=== PATIENT | male | born 1955 | race Caucasian/White ===

== ENCOUNTER 2017-09-19 22:27 | Emergency (ER) | payer OTHER ==
--- OUTSIDE RECORDS SUMMARY | 2017-09-19 22:29 | XMS REPORT | Clinical Summary ---
:1955 Author Organization [facility] Address [address] [place] [address] Care Team Providers Name Role Phone Asked, No Pcp Primary Care Provider Unavailable Allergies Active Allergy Reactions Severity Noted Date Comments Penicillin G 11/15/2016 Current Medications Prescription Sig. Disp. Refills Start Date End Date Status gabapentin TAKE ONE (1) 0 11/01/2016 Active (NEURONTIN) 300 mg CAPSULE(S) BY capsule MOUTH TWICE A DAY AND 2 CAPSULES AT BEDTIME DAILY. methadone (DOLOPHINE) TAKE ONE (1) 0 10/26/2016 Active 10 MG tablet TABLET(S) BY MOUTH FOUR TIMES A DAY FOR PAIN. methocarbamol TAKE ONE (1) 0 10/26/2016 Active (ROBAXIN) 750 MG TABLET(S) BY tablet MOUTH TWICE A DAY. docusate sodium Take 100 mg by Active (COLACE) 100 MG mouth 2 (two) capsule times a day. niacin 100 MG tablet Take 100 mg by Active mouth nightly. clomiPHENE (CLOMID) Take 0.5 tablets 45 tablet 3 06/05/2017 09/03/2017 50 mg tablet (25 mg total) by mouth daily for 90 days. ALPRAZolam (XANAX) 1 Take one dose 2 tablet 0 08/27/2017 08/31/2017 MG tablet one hour prior to MRI, second dose at time of MRI if needed. Active Problems Problem Noted Date Hypogonadism in male 06/05/2017 Osteopenia of multiple sites 05/01/2017 Low libido 05/01/2017 Cervical spondylosis without myelopathy 11/16/2016 Lumbar radiculopathy, right 11/16/2016 Postural kyphosis of thoracic region 11/16/2016 Encounters Date Type Specialty Care Team Description 09/06/2017 Office Visit Neurosurgery Cm Pollard Osteopenia of multiple sites (Primary Dx); MD Torrey Lumbar radiculopathy, right 09/06/2017 Hospital Encounter Radiology Pollard, Cm Lumbar radiculopathy MD Torrey 08/27/2017 Orders Only Neurosurgery Kelley Harris, [employer] 08/23/2017 Hospital Encounter Radiology Pollard, Cm Hip pain, acute, right MD Torrey 08/23/2017 Hospital Encounter Radiology Pollard, Cm Lumbar radiculopathy MD Torrey 08/23/2017 Hospital Encounter Radiology Cm Pollard Lumbar radiculopathy MD Torrey 08/23/2017 Office Visit Neurosurgery Pollard, Cm Osteopenia of multiple sites (Primary Dx); MD Torrey Lumbar radiculopathy, right 08/23/2017 Procedure Pass Radiology 08/23/2017 Telephone Neurosurgery Ann Harrisan, [employer] 08/23/2017 Orders Only Neurosurgery Ann Harrisan, [employer] Lumbar radiculopathy (Primary Dx) 08/23/2017 Orders Only Neurosurgery Ann Harrisan, [employer] Hip pain, acute, right (Primary Dx); Lumbar radiculopathy 08/22/2017 Telephone Endocrinology Ekta Burroughs [place] 08/21/2017 Telephone Endocrinology Ekta Burroughs [place] 06/05/2017 Office Visit Endocrinology Darrell Luis Osteopenia of multiple sites (Primary Dx); MD Derrick Hypogonadism in male 05/14/2017 Orders Only Endocrinology Manjeet Low testosterone in [place], [place] male (Primary Dx) 05/01/2017 Office Visit Endocrinology Darrell Luis Osteopenia of multiple sites (Primary Dx); MD Derrick Low libido 04/17/[address] Burger [place] 12/28/2016 Office Visit Neurosurgery Pollard, Cm Cervical spondylosis without myelopathy (Primary Dx); MD Torrey Lumbar radiculopathy, right 11/29/2016 Hospital Encounter General Surgery Cm Pollard Lumbar radiculopathy MD Torrey 11/29/2016 Anesthesia Event General Surgery Rosendo Sandy MD 11/29/2016 Procedure Pass General Surgery 11/29/2016 Surgery General Surgery Cm Pollard LUMBAR LAMINECTOMY MD Torrey DISECTOMY RIGHT SIDE L4-L5 11/16/2016 Hospital Encounter Radiology Atul, Cm Lumbar radiculopathy, right; MD Torrey Cervical spondylosis without myelopathy; Postural kyphosis of thoracic region; Preoperative testing; Pain; Cough 11/16/2016 Hospital Encounter Radiology Cm Pollard Postural kyphosis of MD Torrey thoracic region 11/16/2016 Hospital Encounter Radiology Cm Pollard Lumbar radiculopathy, right; MD Torrey Cervical spondylosis without myelopathy; Postural kyphosis of thoracic region; Preoperative testing; Pain; Cough 11/16/2016 Hospital Encounter Radiology Cm Pollard Lumbar radiculopathy, right; MD Torrey Cervical spondylosis without myelopathy; Postural kyphosis of thoracic region; Preoperative testing; Pain; Cough 11/16/2016 Hospital Encounter Radiology Cm Pollard Lumbar radiculopathy, right; MD Torrey Cervical spondylosis without myelopathy; Postural kyphosis of thoracic region; Preoperative testing; Pain; Cough 11/16/2016 Hospital Encounter Cm Olvera Lumbar radiculopathy, right; MD Torrey Cervical spondylosis without myelopathy; Postural kyphosis of thoracic region; Preoperative testing; Pain; Cough 11/16/2016 Hospital Encounter Cm Olvera MD 11/16/2016 Hospital Encounter Cm Olvera MD 11/16/2016 Hospital Encounter Cm Olvera MD 11/16/2016 Office Visit Cm Quinonez Cervical spondylosis without myelopathy (Primary Dx); MD Torrey Lumbar radiculopathy, right; Postural kyphosis of thoracic region 11/16/2016 Ancillary Orders Cm Olvera Postural kyphDrake MD thoracic region 11/16/2016 Procedure Pass Radiology 11/16/2016 Procedure Pass Radiology 11/16/2016 Procedure Pass Radiology 11/16/2016 Ancillary Orders Cm Olvera MD 11/16/2016 Orders Only Neurosurgery Kelly Mondragon Lumbar radiculopathy, right (Primary Dx); Cervical spondylosis without myelopathy; Postural kyphosis of thoracic region; Preoperative testing; Pain; Cough 11/15/2016 Abstract Neurosurgery Kelley Harris LVN after 09/18/2016 Family History Medical History Relation Name Comments Arthritis Father Heart disease Father Hypertension Mother Relation Name Status Comments Father Mother Social History Tobacco Use Types Packs/Day Years Used Date Former Smoker Cigarettes 2 Quit: 2009 Smokeless Tobacco: Never Used Comments: quit "many years ago" Alcohol Use Drinks/Week oz/Week Comments Yes 3-4 cans of beer a day, "just depends" Sex Assigned at Date Recorded Not on file Last Filed Vital Signs Vital Sign Reading Time Taken Blood Pressure 159/67 06/05/2017 10:38 AM CDT Pulse 67 06/05/2017 10:38 AM CDT Temperature 36.6 C (97.8 F) 11/29/2016 12:08 PM CDT Respiratory Rate 15 11/29/2016 12:08 PM CDT Oxygen Saturation 94% 11/29/2016 12:08 PM CDT Inhaled Oxygen Concentration - - Weight 88.5 kg (195 lb) 09/06/2017 10:18 AM CDT Height 190.5 cm (6' 3") 06/05/2017 10:38 AM CDT Body Mass Index 24.37 09/06/2017 10:18 AM CDT Plan of Treatment Date Type Specialty Care Team Description 10/09/2017 Office Visit Endocrinology Darrell Luis MD [address] [place] [address] [phone] Health Maintenance Due Date Last Done Comments COLON CANCER SCREENING 01/10/2004 SHINGRIX VACCINE (#1) 01/10/2004 ZOSTER VACCINE 2014 INFLUENZA VACCINE 09/26/2017 Implants Implanted Type Area Piecer Up Device Expiration Model / Identifier Date Serial / Lot System Spine Selnt For Dural Selng Exact 5ml Duraseal - [id number] Cardiovascular N/A: INTEGRA 01/25/2018 [id number] / Implanted: Qty: 1 on 11/29/2016 by Cm Pollard MD Implants N/A LIFESCIENCE / NEURO [id number] Matrix Hm[employer] Floseal 10ml W/ Humn F2 - [id number] Surgical N/A: ESTES [id number] / Implanted: Qty: 1 on 11/29/2016 by Cm Pollard MD Implants; N/A BIOSCIENCE / Expanders; [id number] Extenders; Surgical Wires Procedures Procedure Name Priority Date/Time Associated Diagnosis Comments MRI LUMBAR SPINE W WO Routine 09/06/2017 11:18 Lumbar radiculopathy Results for this CONTRAST AM CDT procedure are in the results section. ESTIMATED GFR Routine 09/06/2017 10:32 Results for this AM CDT procedure are in the results section. POC CREATININE Routine 09/06/2017 10:32 Results for this AM CDT procedure are in the results section. XR LUMBAR SPINE Routine 08/23/2017 1:34 Lumbar radiculopathy Results for this COMPLETE W BENDING PM CDT procedure are in the results section. XR HIP 2-3 VIEWS Routine 08/23/2017 1:33 Hip pain, acute, Results for this RIGHT PM CDT right procedure are in the results section. XR SPINE SCOLIOSIS Routine 08/23/2017 1:32 Lumbar radiculopathy Results for this 2-3 VIEWS PM CDT procedure are in the results section. TESTOSTERONE LEVEL, Routine 08/04/2017 11:58 Osteopenia of Results for this FREE AND TOTAL, MALE AM CDT multiple sites procedure are in Hypogonadism in male the results section. PROLACTIN LEVEL Routine 05/21/2017 10:07 Low testosterone in Results for this AM CDT male procedure are in the results section. TESTOSTERONE LEVEL, Routine 05/21/2017 10:07 Low testosterone in Results for this FREE AND TOTAL, MALE AM CDT male procedure are in the results section. LUTEINIZING HORMONE Routine 05/21/2017 10:07 Low testosterone in Results for this AM CDT male procedure are in the results section. FOLLICLE STIMULATING Routine 05/21/2017 10:07 Low testosterone in Results for this HORMONE AM CDT male procedure are in the results section. TESTOSTERONE LEVEL, Routine 05/01/2017 11:15 Osteopenia of Results for this FREE AND TOTAL, MALE AM LADIES ATTENDANT multiple sites procedure are in Low libido the results section. SURGICAL PATHOLOGY Routine 11/29/2016 11:03 Results for this REQUEST AM CDT procedure are in the results section. XR LUMBAR SPINE 1 VW Routine 11/29/2016 8:53 Results for this AM CDT procedure are in the results section. XR LUMBAR SPINE 1 VW Routine 11/29/2016 8:52 Results for this AM CDT procedure are in the results section. MS AN ELECTIVE Routine 11/29/2016 8:33 ENDOTRACHEAL AIRWAY AM CDT Procedure Note - Rosendo Sandy MD - 11/29/2016 8:32 AM CDT Airway Date/Time: 11/29/2016 8:33 AM Performed by: ROSENDO SANDY Authorized by: ROSENDO SANDY Location: OR Urgency: Elective Difficult Airway: No Preoxygenated with 100% O2: Yes C-spine Precautions Maintained Throughout: Yes Mask Ventilation: Assisted mask Final Airway Type: Endotracheal airway Final Endotracheal Airway: ETT Cuffed: Yes Technique Used: Direct laryngoscopy Devices/Methods Used in Placement: Intubating stylet Insertion Site: Oral Blade Type: Seay Laryngoscope Blade/Videolaryngoscope Blade Size: 2 ETT Size (mm): 8.0 Cuff at minimum occlusion pressure: Yes Measured from: Gums ETT to Gums (cm): 23 Placement Verified by: CO2 detection, direct visualization and equal breath sounds Laryngoscopic view: Grade IIa - partial view of glottis Rapid Sequence Induction (RSI): No Modified RSI: No Number of Attempts at Approach: 1 LAMINECTOMY, LUMBAR 11/29/2016 8:00 AM CDT Lumbar radiculopathy Case Notes PRONE POSITION, MICROSCOPE , FAIZAN FRAME Special Needs PRONE POSITION, MICROSCOPE , FAIZAN FRAME ESTIMATED GFR STAT 11/29/2016 6:00 AM Results for this CDT procedure are in the results section. COMPREHENSIVE STAT 11/29/2016 6:00 AM Results for this METABOLIC PANEL CDT procedure are in the results section. HC COMPLETE BLD COUNT STAT 11/29/2016 6:00 AM Results for this W/AUTO DIFF CDT procedure are in the results section. BONE DENSITY Routine 11/16/2016 11:38 AM Lumbar Results for this CDT radiculopathy, procedure are in right the results Cervical section. spondylosis without myelopathy Postural kyphosis of thoracic region Preoperative testing Pain Cough BONE DENSITY Routine 11/16/2016 11:38 AM Postural kyphosis Results for this PERIPHERAL CDT of thoracic region procedure are in the results section. XR LUMBAR SPINE Routine 11/16/2016 11:21 AM Lumbar Results for this COMPLETE W BENDING CDT radiculopathy, procedure are in right the results Cervical section. spondylosis without myelopathy Postural kyphosis of thoracic region Preoperative testing Pain Cough XR CERVICAL SPINE Routine 11/16/2016 11:20 AM Lumbar Results for this COMPLETE W FLEX EXT CDT radiculopathy, procedure are in right the results Cervical section. spondylosis without myelopathy Postural kyphosis of thoracic region Preoperative testing Pain Cough XR SPINE SCOLIOSIS 2-3 Routine 11/16/2016 11:20 AM Lumbar Results for this VIEWS CDT radiculopathy, procedure are in right the results Cervical section. spondylosis without myelopathy Postural kyphosis of thoracic region Preoperative testing Pain Cough XR CHEST 2 VW Routine 11/16/2016 11:19 AM Lumbar Results for this CDT radiculopathy, procedure are in right the results Cervical section. spondylosis without myelopathy Postural kyphosis of thoracic region Preoperative testing Pain Cough MRI SPINE EXTERNAL Routine 11/09/2016 4:28 PM Results for this STUDY CDT procedure are in the results section. MRI SPINE EXTERNAL Routine 11/09/2016 4:11 PM Results for this STUDY CDT procedure are in the results section. MRI SPINE EXTERNAL Routine 11/09/2016 3:54 PM Results for this STUDY CDT procedure are in the results section. after 09/18/2016 Results MRI Lumbar Spine W Wo Contrast (09/06/2017 11:18 AM) Narrative Performed At EXAMINATION:MRI LUMBAR SPINE W WO CONTRAST [facility] CLINICAL HISTORY:M54.16 Radiculopathylumbar region, Radiculopathy prior surgerynew or progressive sx, lumbar radiculopathy COMPARISON:None. TECHNIQUE: Multiplanar MRI imaging with and withoutIV Gadolinium was performed. FINDINGS: There is normal lumbar lordosis and alignment. Vertebral bodies are preserved. Intervertebral disc spaces are relatively preserved. The distal spinal cord appears unremarkable. The conus medullaris t erminates at the L1-L2 level and appears unremarkable. The cauda equina is unremarkable. L1-2: Unremarkable L2-3: Unremarkable L3-4: Unremarkable L4-5: There is a right-sided laminotomy with expected right epidural enhancing granulation tissue surrounding the traversing right L5 nerve root. There is no canal stenosis or foramina narrowing. There is a no residual or recurrent disc herniation. There is intense bone son edema involving the right pedicle of L5 with suspected the coronal right pedicular fracture and the right L5 pars interarticularis defect. L5-S1: Right L5 pedicular and pars interarticularis intense bone son edema. There is a no canal stenosis and no foraminal narrowing. Visualized paraspinal soft tissues are unremarkable. IMPRESSION: Right laminotomy changes at L4-L5 level with expected mild enhancing right lateral epidural granulation tissue with no residual or current disc herniation. Suspected right pedicle acute coronal fracture of L5 with associated right pars interarticularis defect. There is no spondylolisthesis. There is no canal stenosis or foramina narrowing. If clinically wa rranted evaluation with CT of the lumbar spine is recommended. [id number] Procedure Note Hm Interface, Radiology Results - 09/06/2017 12:00 PM CDT EXAMINATION: MRI LUMBAR SPINE W WO CONTRAST CLINICAL HISTORY: M54.16 Radiculopathy lumbar region, Radiculopathy prior surgery new or progressive sx, lumbar radiculopathy COMPARISON: None. TECHNIQUE: Multiplanar MRI imaging with and without IV Gadolinium was performed. FINDINGS: There is normal lumbar lordosis and alignment. Vertebral bodies are preserved. Intervertebral disc spaces are relatively preserved. The distal spinal cord appears unremarkable. The conus medullaris terminates at the L1-L2 level and appears unremarkable. The cauda equina is unremarkable. L1-2: Unremarkable L2-3: Unremarkable L3-4: Unremarkable L4-5: There is a right-sided laminotomy with expected right epidural enhancing granulation tissue surrounding the traversing right L5 nerve root. There is no canal stenosis or foramina narrowing. There is a no residual or recurrent disc herniation. There is intense bone son edema involving the right pedicle of L5 with suspected the coronal right pedicular fracture and the right L5 pars interarticularis defect. L5-S1: Right L5 pedicular and pars interarticularis intense bone son edema. There is a no canal stenosis and no foraminal narrowing. Visualized paraspinal soft tissues are unremarkable. IMPRESSION: Right laminotomy changes at L4-L5 level with expected mild enhancing right lateral epidural granulation tissue with no residual or current disc herniation. Suspected right pedicle acute coronal fracture of L5 with associated right pars interarticularis defect. There is no spondylolisthesis. There is no canal stenosis or foramina narrowing. If clinically warranted evaluation with CT of the lumbar spine is recommended. [id number] Performing Organization Address City/State/Zipcode Phone Number [facility] [address] [place] [address] Estimated GFR (09/06/2017 10:32 AM) GFR Non Af Amer 67 mL/min/1.73 m2 [facility] DEPARTMENT OF PATHOLOGY AND GENOMIC MEDICINE GFR Af Amer 82 mL/min/1.73 m2 [facility] DEPARTMENT OF Comment: PATHOLOGY AND GENOMIC Chronic kidney disease: <60 mL/min/1.73m2 MEDICINE Kidney failure: <15 mL/min/1.73m2 The estimated GFR is calculated from the IDMS-traceable Modification of Diet in Renal Disease Equation. The accuracy of the calculation is poor when the creatinine is normal. Calculated values >90 mL/min/1.73m2 are not reported. This equation has not been validated in children (<18 years), women, the elderly (>70 years), or ethnic groups other than Caucasians and Americans. Specimen Blood Performing Organization Address City/[facility] Phone Number [facility] DEPARTMENT OF PATHOLOGY AND [address] [phone] [employer] [facility]IC[facility] POC creatinine (09/06/2017 10:32 AM) POC creatinine 1.1 0.7 - 1.2 mg/dl [facility] DEPARTMENT OF PATHOLOGY Comment: AND [employer]ICINE Meter ID: [id number] Electroless Plater: Angel Luis Olivo Specimen Blood Performing Organization Address [facility] Phone Number [facility] DEPARTMENT OF PATHOLOGY AND [address] [place], [place] [phone] GENOMIC MEDICINE XR Lumbar Spine Complete W Flex and Ext (08/23/2017 1:34 PM)Only the most recent of2 resultswithin the time period is included. Narrative Performed At EXAMINATION: XR LUMBAR SPINE COMPLETE W FLEX & EXTEND [facility] CLINICAL HISTORY: M54.16 Radiculopathylumbar region, RADICULOPATHY COMPARISON:Lumbar x-ray dated November 29, 2016 IMPRESSION: 7 views of the lumbar spine were obtained. Flexion-extension imaging was performed with no translational interbody movement identified. There is decreased range of motion. There is facet disease most prominent from L3 to S1. There is loss of disc height with vacuum disc phenomenon L5-S1. No acute osseous abnormality identified. [id number] Procedure Note Hm Interface, Radiology Results Incoming - 08/23/2017 1:41 PM CDT EXAMINATION: XR LUMBAR SPINE COMPLETE W FLEX & EXTEND CLINICAL HISTORY: M54.16 Radiculopathy lumbar region, RADICULOPATHY COMPARISON: Lumbar x-ray dated November 29, 2016 IMPRESSION: 7 views of the lumbar spine were obtained. Flexion-extension imaging was performed with no translational interbody movement identified. There is decreased range of motion. There is facet disease most prominent from L3 to S1. There is loss of disc height with vacuum disc phenomenon L5-S1. No acute osseous abnormality identified. [id number] Performing Organization Address [facility] Phone Number [facility] [address] [place] [address] XR Hip 2-3 View Right (08/23/2017 1:33 PM) Narrative Performed At EXAMINATION:XR HIP 2-3 VIEWS RIGHT [facility] CLINICAL HISTORY:M25.551 Pain in right hip, hip pain COMPARISON:None. IMPRESSION: Bones are well-mineralized. No fracture or dislocation. Minimal degenerative change of the right hip. There are some prostatic calcifications. [facility]-[id number] Procedure Note Interface, Radiology Results Incoming - 08/23/2017 2:17 PM CDT EXAMINATION: XR HIP 2-3 VIEWS RIGHT CLINICAL HISTORY: M25.551 Pain in right hip, hip pain COMPARISON: None. IMPRESSION: Bones are well-mineralized. No fracture or dislocation. Minimal degenerative change of the right hip. There are some prostatic calcifications. [facility]-[id number] Performing Organization Address [facility] Phone Number [facility] [address] [place] [address] XR Spine Scoliosos 2-3 Views (08/23/2017 1:32 PM)Only the most recent of2 resultswithin the time period is included. Narrative Performed At EXAMINATION:XR SPINE SCOLIOSIS 2-3 VIEWS [facility] CLINICAL HISTORY:M54.16 Radiculopathylumbar region, radiculopathy COMPARISON:November 16, 2016 IMPRESSION: 8 views of the spine were obtained. Stable convexity of the upper thoracic spine to the left and mid lumbar spine to the right. Stable exaggerated kyphosis of the thoracic spine. No compression fractures or aggressive bony lesions. Multilevel disc space narrowing and endplate degenerative changes worst in the T9-10. [facility]-[id number] Procedure Note Interface, Radiology Results Incoming - 08/23/2017 3:33 PM CDT EXAMINATION: XR SPINE SCOLIOSIS 2-3 VIEWS CLINICAL HISTORY: M54.16 Radiculopathy lumbar region, radiculopathy COMPARISON: November 16, 2016 IMPRESSION: 8 views of the spine were obtained. Stable convexity of the upper thoracic spine to the left and mid lumbar spine to the right. Stable exaggerated kyphosis of the thoracic spine. No compression fractures or aggressive bony lesions. Multilevel disc space narrowing and endplate degenerative changes worst in the T9-10. [facility]-[id number] Performing Organization Address City/[facility]/Zipcode Phone Number [facility] [address] [place] [address] Testosterone level, free and total, male (08/04/2017 11:58 AM)Only the most recent of3 resultswithin the time period is included. Testosterone, total, 803 250 - 1,100 [facility] lc/ms/ms Comment: ng/dL NINFA CORNELIUS Males: Men with clinically significant hypogonadal symptoms and testosterone values repeatedly in the range of the 200-300 ng/dL or less, may benefit from testosterone treatment after adequate risk and benefits counseling. Testosterone, free 77.0 35.0 - 155.0 [facility] Comment: pg/mL OCASIO ASHLI This test was developed and its analytical performance characteristics have been determined by [facility]. It has not been cleared or approved by the US Food and Drug Administration. This assay has been validated pursuant to the CLIA regulations and is used for clinical purposes. Specimen Blood Narrative Performed At FASTING:NO QUEST FASTING: NO Resulting Agency Comment Performing Organization Information: Site ID: [id number] Name: [facility] Address: [address] [place] [phone] Director: Anival Christie M.D., Ph.D Performing Organization Address [facility] Phone Number [facility] [address] [address] [phone] Prolactin level (05/21/2017 10:07 AM) Prolactin 7.3 2.0 - 18.0 ng/mL [facility] [place] Specimen Blood Narrative Performed At FASTING:YES QUEST FASTING: YES Resulting Agency Comment Performing Organization Information: Site ID: [id number] Name: [facility] Address: [address] [place] [phone] Director: Kristie Floyd MD Performing Organization Address [facility] Phone Number [phone] [facility] [id number] [place] [address] Luteinizing hormone (05/21/2017 10:07 AM) Luteinizing hormone 1.7 1.6 - 15.2 mIU/mL [facility] [place] Specimen Blood Narrative Performed At FASTING:YES [facility]ST FASTING: YES Resulting Agency Comment Performing Organization Information: Site ID: [id number] Name: [facility] Address: [address] [place] [phone] Director: Kristie Floyd MD Performing Organization Address City/[facility] Phone Number [phone] [place] [phone] Follicle stimulating hormone (05/21/2017 10:07 AM) Follicle stimulating hormone 1.0 (L) 1.6 - 8.0 mIU/mL [facility] [place] Specimen Blood Narrative Performed At FASTING:YES [facility]ST FASTING: YES Resulting Agency Comment Performing Organization Information: Site ID: [id number] Name: [facility] Address: [address] [place] [phone] Director: Kristie Floyd MD Performing Organization Address [facility] Phone Number [phone] [facility] [place] [phone] Surgical pathology request (11/29/2016 11:03 AM) [facility] DEPARTMENT OF PATHOLOGY AND GENOMIC MEDICINE Surgical pathology report See link below for PDF [facility] DEPARTMENT OF Lab Report PATHOLOGY AND GENOMIC MEDICINE Performing Organization Address [facility] Phone Number [facility] DEPARTMENT OF PATHOLOGY AND [address] [place] [address] GENOMIC MEDICINE XR Lumbar Spine 1 Vw (11/29/2016 8:53 AM)Only the most recent of2 resultswithin the time period is included. Narrative Performed At EXAMINATION:XR LUMBAR SPINE 1 VW [facility] CLINICAL HISTORY: COMPARISON:None. IMPRESSION: Single intraoperative lateral localization film of the lumbar spine demonstrates a radiopaque instrument projecting overlying the inferior articular facet of L4. [id number] Procedure Note Interface, Radiology Results Incoming - 11/29/2016 9:04 AM CDT EXAMINATION: XR LUMBAR SPINE 1 VW CLINICAL HISTORY: COMPARISON: None. IMPRESSION: Single intraoperative lateral localization film of the lumbar spine demonstrates a radiopaque instrument projecting overlying the inferior articular facet of L4. [id number] Performing Organization Address City/[facility]/Zipcode Phone Number [facility] [address] [place] [address] Estimated GFR (11/29/2016 6:00 AM) GFR Non Af Amer 85 mL/min/1.73 m2 [facility] DEPARTMENT OF PATHOLOGY AND GENOMIC MEDICINE GFR Af Amer >90 mL/min/1.73 m2 [facility] DEPARTMENT OF Comment: PATHOLOGY AND GENOMIC Chronic kidney disease: <60 mL/min/1.73m2 MEDICINE Kidney failure: <15 mL/min/1.73m2 The estimated GFR is calculated from the IDMS-traceable Modification of Diet in Renal Disease Equation. The accuracy of the calculation is poor when the creatinine is normal. Calculated values >90 mL/min/1.73m2 are not reported. This equation has not been validated in children (<18 years), women, the elderly (>70 years), or ethnic groups other than Caucasians and Americans. Specimen Plasma specimen Performing Organization Address City/State/Zipcode Phone Number [facility] DEPARTMENT OF PATHOLOGY AND [address] [place] [address] [employer] [facility] CBC with platelet and differential (11/29/2016 6:00 AM) WBC 6.90 4.50 - 11.00 k/uL [facility] DEPARTMENT OF PATHOLOGY AND GENOMIC MEDICINE RBC 4.19 (L) 4.40 - 6.00 m/uL [facility] DEPARTMENT OF PATHOLOGY AND GENOMIC MEDICINE HGB 13.3 (L) 14.0 - 18.0 g/dL [facility] DEPARTMENT OF PATHOLOGY AND GENOMIC MEDICINE HCT 40.4 (L) 41.0 - 51.0 % [facility] DEPARTMENT OF PATHOLOGY AND GENOMIC MEDICINE MCV 96.4 82.0 - 100.0 fL [facility] DEPARTMENT OF PATHOLOGY AND GENOMIC MEDICINE MCH 31.7 27.0 - 34.0 pg [facility] DEPARTMENT OF PATHOLOGY AND GENOMIC MEDICINE MCHC 32.9 31.0 - 37.0 g/dL [facility] DEPARTMENT OF PATHOLOGY AND GENOMIC MEDICINE RDW - SD 43.6 37.0 - 55.0 fL [facility] DEPARTMENT OF PATHOLOGY AND GENOMIC MEDICINE MPV 11.0 8.8 - 13.2 fL [facility] DEPARTMENT OF PATHOLOGY AND GENOMIC MEDICINE Platelet count 200 150 - 400 k/uL [facility] DEPARTMENT OF PATHOLOGY AND GENOMIC MEDICINE Nucleated RBC 0.00 /100 WBC [facility] DEPARTMENT OF PATHOLOGY AND GENOMIC MEDICINE Neutrophils 49.4 39.0 - 69.0 % [facility] DEPARTMENT OF PATHOLOGY AND GENOMIC MEDICINE Lymphocytes 33.0 25.0 - 45.0 % [facility] DEPARTMENT OF PATHOLOGY AND GENOMIC MEDICINE Monocytes 8.4 0.0 - 10.0 % [facility] DEPARTMENT OF PATHOLOGY AND GENOMIC MEDICINE Eosinophils 7.2 (H) 0.0 - 5.0 % [facility] DEPARTMENT OF PATHOLOGY AND GENOMIC MEDICINE Basophils 1.3 (H) 0.0 - 1.0 % [facility] DEPARTMENT OF PATHOLOGY AND GENOMIC MEDICINE Immature granulocytes 0.7Comment: 0.0 - 1.0 % [facility] DEPARTMENT OF "Immature PATHOLOGY AND GENOMIC granulocytes" MEDICINE (promyelocytes, myelocytes, metamyelocytes) Specimen Blood Performing Organization Address City/State/Zipcode Phone Number [facility] DEPARTMENT OF PATHOLOGY AND [address] [place] [address] [facility] Comprehensive metabolic panel (11/29/2016 6:00 AM) Sodium 140 135 - 148 mEq/L [facility] DEPARTMENT OF PATHOLOGY AND GENOMIC MEDICINE Potassium 4.4 3.5 - 5.0 mEq/L [facility] DEPARTMENT OF PATHOLOGY AND GENOMIC MEDICINE Chloride 104 98 - 112 mEq/L [facility] DEPARTMENT OF PATHOLOGY AND GENOMIC MEDICINE CO2 24 24 - 31 mEq/L [facility] DEPARTMENT OF PATHOLOGY AND GENOMIC MEDICINE Anion gap 12 7 - 15 mEq/L [facility] DEPARTMENT OF Comment: PATHOLOGY AND GENOMIC Starting from May , anion gap calculation MEDICINE no longer incorporates potassium. Please note the change. BUN 13 8 - 23 mg/dL [facility] DEPARTMENT OF PATHOLOGY AND GENOMIC MEDICINE Creatinine 0.9 0.7 - 1.2 mg/dL [facility] DEPARTMENT OF PATHOLOGY AND GENOMIC MEDICINE Glucose 97 65 - 99 mg/dL [facility] DEPARTMENT OF PATHOLOGY AND GENOMIC MEDICINE Calcium 9.1 8.8 - 10.2 mg/dL [facility] DEPARTMENT OF PATHOLOGY AND GENOMIC MEDICINE Protein 6.3 6.3 - 8.3 g/dL [facility] DEPARTMENT OF Comment: PATHOLOGY AND GENOMIC 4.6-7.0 g/dL MEDICINE 1 week 4.4-7.6 g/dL 7 months-1year5.1-7.3 g/dL 1-2 years5.6-7.5 g/dL >3 years6.0-8.0 g/dL 18-150 6.3-8.3 g/dL Albumin 3.1 (L) 3.5 - 5.0 g/dL [facility] DEPARTMENT OF PATHOLOGY AND GENOMIC MEDICINE A/G ratio 1.0 0.7 - 3.8 [facility] DEPARTMENT OF PATHOLOGY AND GENOMIC MEDICINE Alkaline phosphatase 75 40 - 129 U/L [facility] DEPARTMENT OF PATHOLOGY AND GENOMIC MEDICINE AST 18 10 - 50 U/L [facility] DEPARTMENT OF PATHOLOGY AND GENOMIC MEDICINE ALT 18 5 - 50 U/L [facility] DEPARTMENT OF PATHOLOGY AND GENOMIC MEDICINE Total bilirubin <0.2 0.0 - 1.2 mg/dL [facility] DEPARTMENT OF PATHOLOGY AND GENOMIC MEDICINE Specimen Plasma specimen Performing Organization Address City/State/Zipcode Phone Number [facility] DEPARTMENT OF PATHOLOGY AND [address] [place] [address] GENOMIC MEDICINE Bone Density Peripheral (11/16/2016 11:38 AM) Narrative Performed At EXAMINATION:BONE DENSITY WITH PERIPHERAL HM [facility] CLINICAL HISTORY:M54.16 Radiculopathylumbar region, 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 The results of this study expressed as bone mineral density (BMD) were as follows: AP spine (L1-L4) BMD: 1.100 g/cm2 T-Score: -1.0 Z-Score: -0.8 Percent change: No prior exam. % Dual Femur (Total Mean): BMD: 0.862 g/cm2 T-Score: -1.7 Z-Score:-1.3 Percent change: No prior exam. % Left Forearm (Radius 33%): BMD: 0.929 g/cm2 T-Score: -0.6 Z-Score: -0.1 Percent change: No prior exam. % Femur FRAX: Risk factors: None. 10 year probability of fracture: 1.Major osteoporotic: 7.9% 2.Hip: 1.7% 3.Based on femur right neck BMD Trabecular Bone Score (TBS): TBS L1-L4: 1.310,partially degraded microarchitecture The 10 year probability of fracture, adjusted for FRAX: Major Osteoporotic Fracture: 8.1% Hip Fracture:1.6% Impression: 1.Osteopenia based on a T score value of -1.7 for the dual femur total mean. Notes: *The world health organization (WHO) has classified the patient's T-score as follows: At or above (-1) as normal (-1) to (-2.5) as low (osteopenia) At or below (-2.5) as abnormally low (osteoporosis, increased fracture risk) For premenopausal women, men under the age 50 years, and children the WHO classification does not apply. In these individuals please assess bone mineral density with Z scores for each skeletal site examined. Z scores above -2.0: Within expected range for age. Z scores lower than -2.0:Low bone density for age. The TBS is derived from the texture of the DEXA image and has been shown to be related to bone microarchitecture and fracture risk. This data provides information independent of BMD value; is used as a complement to the data obtained from the DEXA analysis and the clinical examination. The TBS can assist the healthcare professional in assessment of fracture risk and in monitoring the effect of treatments on patient over time. [facility]-[id number] Procedure Note [facility], Radiology Results Incoming - 11/16/2016 12:16 PM CDT EXAMINATION: BONE DENSITY WITH PERIPHERAL CLINICAL HISTORY: M54.16 Radiculopathy lumbar region, M47.812 Spondylosis without myelopathy or radiculopathy cervical region, Osteoarthritis, pre-op COMPARISON: None. The results of this study expressed as bone mineral density (BMD) were as follows: AP spine (L1-L4) BMD: 1.100 g/cm2 T-Score: -1.0 Z-Score: -0.8 Percent change: No prior exam. % Dual Femur (Total Mean): BMD: 0.862 g/cm2 T-Score: -1.7 Z-Score: -1.3 Percent change: No prior exam. % Left Forearm (Radius 33%): BMD: 0.929 g/cm2 T-Score: -0.6 Z-Score: -0.1 Percent change: No prior exam. % Femur FRAX: Risk factors: None. 10 year probability of fracture: 1. Major osteoporotic: 7.9% 2. Hip: 1.7% 3. Based on femur right neck BMD Trabecular Bone Score (TBS): TBS L1-L4: 1.310, partially degraded microarchitecture The 10 year probability of fracture, adjusted for FRAX: Major Osteoporotic Fracture: 8.1% Hip Fracture: 1.6% Impression: 1. Osteopenia based on a T score value of -1.7 for the dual femur total mean. Notes: *The world health organization (WHO) has classified the patient's T-score as follows: At or above (-1) as normal (-1) to (-2.5) as low (osteopenia) At or below (-2.5) as abnormally low (osteoporosis, increased fracture risk) For premenopausal women, men under the age 50 years, and children the WHO classification does not apply. In these individuals please assess bone mineral density with Z scores for each skeletal site examined. Z scores above -2.0: Within expected range for age. Z scores lower than -2.0: Low bone density for age. The TBS is derived from the texture of the DEXA image and has been shown to be related to bone microarchitecture and fracture risk. This data provides information independent of BMD value; is used as a complement to the data obtained from the DEXA analysis and the clinical examination. The TBS can assist the healthcare professional in assessment of fracture risk and in monitoring the effect of treatments on patient over time. 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 The results of this study expressed as bone mineral density (BMD) were as follows: AP spine (L1-L4) BMD: 1.100 g/cm2 T-Score: -1.0 Z-Score: -0.8 Percent change: No prior exam. % Dual Femur (Total Mean): BMD: 0.862 g/cm2 T-Score: -1.7 Z-Score:-1.3 Percent change: No prior exam. % Left Forearm (Radius 33%): BMD: 0.929 g/cm2 T-Score: -0.6 Z-Score: -0.1 Percent change: No prior exam. % Femur FRAX: Risk factors: None. 10 year probability of fracture: 1.Major osteoporotic: 7.9% 2.Hip: 1.7% 3.Based on femur right neck BMD Trabecular Bone Score (TBS): TBS L1-L4: 1.310,partially degraded microarchitecture The 10 year probability of fracture, adjusted for FRAX: Major Osteoporotic Fracture: 8.1% Hip Fracture:1.6% Impression: 1.Osteopenia based on a T score value of -1.7 for the dual femur total mean. Notes: *The world health organization (WHO) has classified the patient's T-score as follows: At or above (-1) as normal (-1) to (-2.5) as low (osteopenia) At or below (-2.5) as abnormally low (osteoporosis, increased fracture risk) For premenopausal women, men under the age 50 years, and children the WHO classification does not apply. In these individuals please assess bone mineral density with Z scores for each skeletal site examined. Z scores above -2.0: Within expected range for age. Z scores lower than -2.0:Low bone density for age. The TBS is derived from the texture of the DEXA image and has been shown to be related to bone microarchitecture and fracture risk. This data provides information independent of BMD value; is used as a complement to the data obtained from the DEXA analysis and the clinical examination. The TBS can assist the healthcare professional in assessment of fracture risk and in monitoring the effect of treatments on patient over time. [facility]-[id number] Procedure Note [facility], Radiology Results Incoming - 11/16/2016 12:15 PM CDT EXAMINATION: BONE DENSITY CLINICAL HISTORY: M54.16 Radiculopathy lumbar region, M47.812 Spondylosis without myelopathy or radiculopathy cervical region, Osteoarthritis, pre-op COMPARISON: None. The results of this study expressed as bone mineral density (BMD) were as follows: AP spine (L1-L4) BMD: 1.100 g/cm2 T-Score: -1.0 Z-Score: -0.8 Percent change: No prior exam. % Dual Femur (Total Mean): BMD: 0.862 g/cm2 T-Score: -1.7 Z-Score: -1.3 Percent change: No prior exam. % Left Forearm (Radius 33%): BMD: 0.929 g/cm2 T-Score: -0.6 Z-Score: -0.1 Percent change: No prior exam. % Femur FRAX: Risk factors: None. 10 year probability of fracture: 1. Major osteoporotic: 7.9% 2. Hip: 1.7% 3. Based on femur right neck BMD Trabecular Bone Score (TBS): TBS L1-L4: 1.310, partially degraded microarchitecture The 10 year probability of fracture, adjusted for FRAX: Major Osteoporotic Fracture: 8.1% Hip Fracture: 1.6% Impression: 1. Osteopenia based on a T score value of -1.7 for the dual femur total mean. Notes: *The world health organization (WHO) has classified the patient's T-score as follows: At or above (-1) as normal (-1) to (-2.5) as low (osteopenia) At or below (-2.5) as abnormally low (osteoporosis, increased fracture risk) For premenopausal women, men under the age 50 years, and children the WHO classification does not apply. In these individuals please assess bone mineral density with Z scores for each skeletal site examined. Z scores above -2.0: Within expected range for age. Z scores lower than -2.0: Low bone density for age. The TBS is derived from the texture of the DEXA image and has been shown to be related to bone microarchitecture and fracture risk. This data provides information independent of BMD value; is used as a complement to the data obtained from the DEXA analysis and the clinical examination. The TBS can assist the healthcare professional in assessment of fracture risk and in monitoring the effect of treatments on patient over time. [facility]-[id number] [facility] Organization Address City/State/Zipcode Phone Number [facility] [address] [place] [address] XR Cervical Spine Complete w flex/ext (11/16/2016 11:20 AM) Narrative Performed At EXAMINATION:XR CERVICAL SPINE COMPLETE W FLEX EXT [facility] 8 views CLINICAL HISTORY:M54.16 Radiculopathylumbar region, M47.812 Spondylosis without myelopathy or radiculopathycervical region, NECK PAINCERVICAL SPINE COMPARISON:Cervical spine June 20, 2016. FINDINGS: 1. There is no prevertebral soft tissue swelling, fracture or subluxation demonstrated 2.On the neutral lateral view there is normal alignment except for slight retrolisthesis of C5 relative to C6 which is reduced in flexion and slightly accentuated in extension.. There is otherwise no abnormal movement on the dynamic views. 3.At C3-4 there is mild to moderate ventral spondylosis. There is minimal disc space narrowing at C4-5. There is moderate disc space narrowing and very minimal spondylosis at C5-C6. There is mild ventral spondylosis and mild to moderate disc space narrowing at C6-C7. 4.There is minimal uncovertebral hypertrophic change with minimal foraminal narrowing on the right at C5-6 and C6-7 and on the left at C6-C7. There there is very minimal uncovertebral degenerative changes without significant foraminal stenosis on the left at C3-4, C4-5 and on the right at C3-4. The AP dimensions of the cervical spinal canal are within normal limits. 5.There is slight curvature of the cervical spine convex towards the right. IMPRESSION: Mild degenerative changes without evidence of an acute abnormality. The spondylosis is C3-4 has progressed slightly since the last study otherwise no definite interval change. [facility]-[id number] Procedure Note Hm Interface, Radiology Results - 11/16/2016 11:42 AM CDT EXAMINATION: XR CERVICAL SPINE COMPLETE W FLEX EXT 8 views CLINICAL HISTORY: M54.16 Radiculopathy lumbar region, M47.812 Spondylosis without myelopathy or radiculopathy cervical region, NECK PAIN CERVICAL SPINE COMPARISON: Cervical spine June 20, 2016. FINDINGS: 1. There is no prevertebral soft tissue swelling, fracture or subluxation demonstrated 2. On the neutral lateral view there is normal alignment except for slight retrolisthesis of C5 relative to C6 which is reduced in flexion and slightly accentuated in extension.. There is otherwise no abnormal movement on the dynamic views. 3. At C3-4 there is mild to moderate ventral spondylosis. There is minimal disc space narrowing at C4-5. There is moderate disc space narrowing and very minimal spondylosis at C5-C6. There is mild ventral spondylosis and mild to moderate disc space narrowing at C6-C7. 4. There is minimal uncovertebral hypertrophic change with minimal foraminal narrowing on the right at C5-6 and C6-7 and on the left at C6-C7. There there is very minimal uncovertebral degenerative changes without significant foraminal stenosis on the left at C3-4, C4-5 and on the right at C3-4. The AP dimensions of the cervical spinal canal are within normal limits. 5. There is slight curvature of the cervical spine convex towards the right. IMPRESSION: Mild degenerative changes without evidence of an acute abnormality. The spondylosis is C3-4 has progressed slightly since the last study otherwise no definite interval change. [facility]-[id number] Performing Organization Address City/State/Zipcode Phone Number [facility] [address] [place] [address] XR Chest 2 Vw (11/16/2016 11:19 AM) Narrative Performed At EXAMINATION:XR CHEST 2 VW [facility] CLINICAL HISTORY:M54.16 Radiculopathylumbar region, M47.812 Spondylosis without myelopathy or radiculopathycervical region, Cough IMPRESSION: Normal chest. Heart and mediastinum are within normal limits. Lungs are clear. Regional skeleton is intact. No change from April 16, 2006 [facility]-[id number] Procedure Note Hm Interface, Radiology Results Incoming - 11/16/2016 11:24 AM CDT EXAMINATION: XR CHEST 2 VW CLINICAL HISTORY: M54.16 Radiculopathy lumbar region, M47.812 Spondylosis without myelopathy or radiculopathy cervical region, Cough IMPRESSION: Normal chest. Heart and mediastinum are within normal limits. Lungs are clear. Regional skeleton is intact. No change from April 16, 2006 [facility]-[id number] Performing Organization Address [facility] Phone Number [facility] [address] [place] [address] MRI Spine External Study (11/09/2016 4:28 PM)Only the most recent of3 resultswithin the time period is included. Narrative Performed At This exam was not acquired at a [employer] facility and has not been [facility] interpreted by a [employer] Provider.The exam was imported into our imaging system for comparisons purposes. Performing Organization Address City/[facility]/Zipcode Phone Number [facility] [address] [place] [address] after 09/18/2016 Insurance Payer Benefit Plan / Group Subscriber ID Type Phone Address MEDICARE MEDICARE PART A AND B xxxxxxxxxx Medicare [place], [place] [employer] xxxxxxxxx Indemnity Home: [address] [phone] [address]
[2017-09-19] MEDS ORDERED: LIDOCAINE 1% W/EPI 1:100,000 MDV 50 ML VIAL ONE (23:40)
--- NOTE | 2017-09-19 23:55 | EDPHYS ---
Physician Documentation [facility] Name: Filippo Mcguire Age: 62 yrs Sex: Male : 1955 Arrival Date: 09/19/2017 Time: 22:32 Bed 30 Private MD: ED Physician Bandar Crane HPI: 09/19 23:50 This 62 yrs old Male presents to ER via Wheelchair with complaints of maría Laceration To Foot. 23:50 The patient has a laceration related to: doing yard work, occurred at home. The maría laceration(s) is(are) located on the ball of left foot. Onset: The symptoms/episode began/occurred just prior to arrival. Associated signs and symptoms: The patient has no apparent associated signs or symptoms. The patient has not experienced similar symptoms in the past. Historical: - Allergies: 22:46 PENICILLINS; lp1 22:46 Morphine; lp1 - Home Meds: 22:46 Methadone Oral [Active]; gabapentin oral oral [Active]; Robaxin Oral [Active]; lp1 - PMHx: 22:46 chronic back pain; lp1 - PSHx: 22:46 Back surgery; lp1 - Immunization history:: Adult Immunizations up to date, Last tetanus immunization: < 10 years ago. - Social history:: Smoking status: Patient/guardian denies using tobacco. - Ebola Screening: : No symptoms or risks identified at this time. - Family history:: not pertinent. ROS: 23:50 Constitutional: Negative for fever, chills, and weight loss, Eyes: Negative for injury, maría pain, redness, and discharge, ENT: Negative for injury, pain, and discharge, Neck: Negative for injury, pain, and swelling, Cardiovascular: Negative for chest pain, palpitations, and edema, Respiratory: Negative for shortness of breath, cough, wheezing, and pleuritic chest pain, Abdomen/GI: Negative for abdominal pain, nausea, vomiting, diarrhea, and constipation, Back: Negative for injury and pain, : Negative for injury, bleeding, discharge, and swelling, Skin: Negative for injury, rash, and discoloration, Neuro: Negative for headache, weakness, numbness, tingling, and seizure, Psych: Negative for depression, anxiety, suicide ideation, homicidal ideation, and hallucinations, Allergy/Immunology: Negative for hives, rash, and allergies, Endocrine: Negative for neck swelling, polydipsia, polyuria, polyphagia, and marked weight changes, Hematologic/Lymphatic: Negative for swollen nodes, abnormal bleeding, and unusual bruising. 23:50 MS/extremity: Positive for injury or acute deformity, pain, swelling, of the left foot. Exam: 23:50 Constitutional: This is a well developed, well nourished patient who is awake, alert, maría and in no acute distress. Head/Face: Normocephalic, atraumatic. Eyes: Pupils equal round and reactive to light, extra-ocular motions intact. Lids and lashes normal. Conjunctiva and sclera are non-icteric and not injected. Cornea within normal limits. Periorbital areas with no swelling, redness, or edema. ENT: Nares patent. No nasal discharge, no septal abnormalities noted. Tympanic membranes are normal and external auditory canals are clear. Oropharynx with no redness, swelling, or masses, exudates, or evidence of obstruction, uvula midline. Mucous membranes moist. Neck: Trachea midline, no thyromegaly or masses palpated, and no cervical lymphadenopathy. Supple, full range of motion without nuchal rigidity, or vertebral point tenderness. No Meningismus. Chest/axilla: Normal chest wall appearance and motion. Nontender with no deformity. No lesions are appreciated. Cardiovascular: Regular rate and rhythm with a normal S1 and S2. No gallops, murmurs, or rubs. Normal PMI, no JVD. No pulse deficits. Respiratory: Lungs have equal breath sounds bilaterally, clear to auscultation and percussion. No rales, rhonchi or wheezes noted. No increased work of breathing, no retractions or nasal flaring. Abdomen/GI: Soft, non-tender, with normal bowel sounds. No distension or tympany. No guarding or rebound. No evidence of tenderness throughout. Back: No spinal tenderness. No costovertebral tenderness. Full range of motion. Male : Normal genitalia with no discharge or lesions. Skin: Warm, dry with normal turgor. Normal color with no rashes, no lesions, and no evidence of cellulitis. Neuro: Awake and alert, GCS 15, oriented to person, place, time, and situation. Cranial nerves II-XII grossly intact. Motor strength 5/5 in all extremities. Sensory grossly intact. Cerebellar exam normal. Normal gait. Psych: Awake, alert, with orientation to person, place and time. Behavior, mood, and affect are within normal limits. 23:50 Musculoskeletal/extremity: Extremities: noted in the left foot: laceration, ROM: full active range of motion, full passive range of motion, Circulation is intact in all extremities. Sensation intact. Compartment Syndrome exam of affected extremity: is normal. Vital Signs: 22:45 BP 139 / 89; Pulse 75; Resp 18; Temp 98.5(O); Pulse Ox 97% on R/A; Weight 88.45 kg; lp1 Height 6 ft. 3 in. (190.50 cm); Pain 07/05; 09/20 00:00 BP 137 / 76; Pulse 74; Resp 18; Pulse Ox 97% on R/A; lp1 09/19 22:45 Body Mass Index 24.37 (88.45 kg, 190.50 cm) Laceration: 09/19 23:50 Wound Repair of 3cm ( 1.2in ) subcutaneous laceration to instep of left foot. maría Irregularly shaped.. Distal neuro/vascular/tendon intact. Anesthesia: Local anesthetic administered with 8 mls of 1% lidocaine w/ Epi. Wound prep: Moderate cleansing by me. Skin closed with 4 5-0 Prolene using interrupted sutures and sterile technique. Dressed with Neosporin. Patient tolerated well. MDM: 23:02 Patient medically screened. [facility] 23:50 Data reviewed: vital signs, nurses notes. [facility] 09/19 23:50 Order name: Dressing - Wound; Complete Time: 23:51 [facility] 09/19 23:50 Order name: Gloves, Sterile; Complete Time: 23:51 [facility] 09/19 23:50 Order name: Setup Suture Tray; Complete Time: 23:51 [facility] 09/19 23:50 Order name: Wound dressing; Complete Time: 23:51 [facility] Administered Medications: 23:41 Drug: Lidocaine-Epinephrine -1%: (1:100,000) 1 vials Volume: 20 ml; Route: Infiltration;[facility] 23:51 Drug: Neosporin Ointment 1 application Route: Topical; Site: wound; [facility] 09/20 00:09 Drug: Tetanus-Diphtheria Toxoid Adult 0.5 ml {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 Exp: 1 11/15/2019. Lot #: [id number]. } Route: IM; Site: right deltoid; 00:11 Follow up: Response: Medication administered at discharge. lp1 00:11 Drug: Bactrim (160 mg-800 mg (DS) 1 tablet Route: PO; lp1 00:11 Follow up: Response: Medication administered at discharge. lp1 Disposition: 09/19/17 23:54 Discharged to Home. Impression: Laceration without foreign body, left foot. - Condition is Stable. - Discharge Instructions: Laceration Care, Adult, Laceration Care, Adult, [id number]. - Prescriptions for Tylenol- Codeine #3 300-30 mg Oral Tablet - take 2 tablets by ORAL route every 6 hours As needed; 24 tablet. Bactrim DS 800- 160 mg Oral Tablet - take 1 tablet by ORAL route every 12 hours for 10 days; 20 tablet. - Medication Reconciliation Form, Thank You Letter, Antibiotic Education, Prescription Opioid Use form. - Follow up: Private Physician; When: 7 - 10 days; Reason: Recheck today's complaints, Continuance of care, Re-evaluation by your physician. - Problem is new. - Symptoms have improved. Signatures: Bandar Crane MD MD cha Pena, Laura RN RN lp1 Corrections: (The following items were deleted from the chart) 00:12 09/19 23:54 09/19/2017 23:54 Discharged to Home. Impression: Laceration without foreign lp1 body, left foot. Condition is Stable. Forms are Medication Reconciliation Form, Thank You Letter, Antibiotic Education, Prescription Opioid Use. Follow up: Private Physician; When: 7 - 10 days; Reason: Recheck today's complaints, Continuance of care, Re-evaluation by your physician. Problem is new. Symptoms have improved. maría
--- NOTE | 2017-09-19 23:55 | ER ---
Nurse's Notes [facility] Name: Filippo Mcguire Age: 62 yrs Sex: Male : 1955 Arrival Date: 09/19/2017 Time: 22:32 Bed 30 Private MD: Diagnosis: Laceration without foreign body, left foot Presentation: 09/19 22:42 Presenting complaint: Patient states: Laceration to left medial foot from hardware lp1 carpet; Not actively bleeding. Transition of care: patient was not received from another setting of care. Onset of symptoms was September 19, 2017. Risk Assessment: Do you want to hurt yourself or someone else? Patient reports no desire to harm self or others. Initial Sepsis Screen: Does the patient meet any 2 criteria? No. Patient's initial sepsis screen is negative. Does the patient have a suspected source of infection? No. Patient's initial sepsis screen is negative. Care prior to arrival: None. 22:42 Method Of Arrival: Wheelchair lp1 22:42 Acuity: PIOTR 4 lp1 Historical: - Allergies: 22:46 PENICILLINS; lp1 22:46 Morphine; lp1 - Home Meds: 22:46 Methadone Oral [Active]; gabapentin oral oral [Active]; Robaxin Oral [Active]; lp1 - PMHx: 22:46 chronic back pain; lp1 - PSHx: 22:46 Back surgery; lp1 - Immunization history:: Adult Immunizations up to date, Last tetanus immunization: < 10 years ago. - Social history:: Smoking status: Patient/guardian denies using tobacco. - Ebola Screening: : No symptoms or risks identified at this time. - Family history:: not pertinent. Screenin:47 Abuse screen: Denies threats or abuse. Denies injuries from another. Nutritional lp1 screening: No deficits noted. Tuberculosis screening: No symptoms or risk factors identified. Fall Risk None identified. Assessment: 22:46 General: Appears in no apparent distress. Behavior is calm, cooperative, appropriate lp1 for age. Pain: Complains of pain in instep of left foot Pain currently is 5 out of 10 on a pain scale. Quality of pain is described as aching. Neuro: Level of Consciousness is awake, alert, obeys commands. Cardiovascular: Patient's skin is warm and dry. Respiratory: No deficits noted. GI: No deficits noted. : No deficits noted. EENT: No deficits noted. Derm: Wound noted Other: Laceration to left instep of foot, not actively bleeding. Musculoskeletal: Circulation, motion, and sensation intact. Vital Signs: 22:45 BP 139 / 89; Pulse 75; Resp 18; Temp 98.5(O); Pulse Ox 97% on R/A; Weight 88.45 kg; lp1 Height 6 ft. 3 in. (190.50 cm); Pain 5/10; 09/20 00:00 BP 137 / 76; Pulse 74; Resp 18; Pulse Ox 97% on R/A; lp1 09/19 22:45 Body Mass Index 24.37 (88.45 kg, 190.50 cm) lp1 ED Course: 09/19 22:32 Patient arrived in ED. ds1 22:42 Jessica Madrid, RN is Primary Nurse. lp1 22:44 Triage completed. lp1 22:44 Arm band placed on left wrist. lp1 22:48 Patient has correct armband on for positive identification. lp1 23:02 Bandar Crane MD is Attending Physician. maría 23:12 Wound care: to laceration located on instep of left foot was irrigated with normal lp1 saline. 23:12 Patient did not have IV access during this emergency room visit. lp1 23:41 Assist provider with laceration repair on instep of left foot that was between 2.6 to lp1 7.5 cm using sutures. Set up tray. Performed by Bandar Crane MD. 23:52 Dressings: non-adherent dressing x 1 left foot TARAN wrap. 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 Exp: lp1 11/15/2019. Lot #: [id number]. } Route: IM; Site: right deltoid; 00:11 Follow up: Response: Medication administered at discharge. lp1 00:11 Drug: Bactrim (160 mg-800 mg (DS) 1 tablet Route: PO; lp1 00:11 Follow up: Response: Medication administered at discharge. lp1 Outcome: 09/19 23:54 Discharge ordered by . maría 09/20 00:11 Discharged to home ambulatory. lp1 Condition: good Discharge instructions given to patient, Instructed on discharge instructions, follow up and referral plans. medication usage, wound care, Demonstrated understanding of instructions, follow-up care, medications, Prescriptions given X 2. 00:12 Patient left the ED. lp1 Signatures: Bandar Crane MD MD cha Sanford, Demi ds1 Jessica Madrid, RN RN lp1
[2017-09-19] MEDS ORDERED: SMZ./TMP. 800/160 MG TABLET ONE (23:58)
[2017-09-20] MEDS ORDERED: TETANUS & DIPHTHERIA TOX,ADULT 0.5 ML VIAL ONE (00:05)
== END 2017-09-20 00:12 | disposition home or self-care (01) ==
LOC: ER 22:27
PROC: 0HQNXZZ Repair Left Foot Skin, External Approach (ICD-10-PCS; principal; 2017-09-19)
DX: S91.312A Laceration without foreign body, left foot, initial encounter (principal); X58.XXXA Exposure to other specified factors, initial encounter; Y93.H2 Activity, gardening and landscaping; Y92.007 Garden or yard of unspecified non-institutional (private) residence as the place of occurrence of the external cause; Y99.9 Unspecified external cause status; Z23 Encounter for immunization
CPT/HCPCS: 90714; 99284

== ENCOUNTER 2018-09-12 14:44 | Emergency (ER) | payer OTHER ==
--- OUTSIDE RECORDS SUMMARY | 2018-09-12 14:47 | XMS REPORT | Clinical Summary ---
:1955 Author Organization [facility] Address [address] [place] [address] Care Team Providers Name Role Phone Sarthak Bates MD Primary Care Provider Allergies Active Allergy Reactions Severity Noted Date Comments Penicillin G 11/15/2016 Medications Medication Sig Dispensed Refills Start Date End Date Status gabapentin TAKE ONE (1) 0 11/01/2016 Active (NEURONTIN) 300 mg CAPSULE(S) BY capsule MOUTH TWICE A DAY AND 2 CAPSULES AT BEDTIME DAILY. methadone TAKE ONE (1) 0 10/26/2016 Active (DOLOPHINE) 10 MG TABLET(S) BY tablet MOUTH FOUR TIMES A DAY FOR PAIN. methocarbamol TAKE ONE (1) 0 10/26/2016 Active (ROBAXIN) 750 MG TABLET(S) BY tablet MOUTH TWICE A DAY. docusate sodium Take 100 mg by 0 Active (COLACE) 100 MG mouth 2 (two) capsule times a day. niacin 100 MG Take 100 mg by 0 Active tablet mouth nightly. clomiPHENE (CLOMID) Take 0.5 45 tablet 3 04/04/2018 Active 50 mg tablets (25 mg tabletIndications: total) by Hypogonadism in mouth daily. male Take half tablet QD clomiPHENE (CLOMID) Take 0.5 45 tablet 0 10/15/2017 01/13/2018 50 mg tablets (25 mg tabletIndications: total) by Hypogonadism in mouth daily male for 90 days. clomiPHENE (CLOMID) Take half 30 tablet 0 02/28/2018 04/04/2018 Discontinued 50 mg tablet QD tabletIndications: Hypogonadism in male Active Problems Problem Noted Date Chronic right-sided low back pain with right-sided sciatica 03/14/2018 Hypogonadism in male 06/05/2017 Osteopenia of multiple sites 05/01/2017 Low libido 05/01/2017 Cervical spondylosis without myelopathy 11/16/2016 Lumbar radiculopathy, right 11/16/2016 Postural kyphosis of thoracic region 11/16/2016 Encounters Date Type Specialty Care Team Description 04/04/2018 Office Visit Endocrinology Darrell Luis, Hypogonadism in male (Primary Dx); Osteopenia of multiple sites 03/18/2018 Telephone Neurosurgery Kelley Harris LVN 03/15/2018 Telephone Neurosurgery Kelley Harris LVN 03/14/2018 Hospital Encounter Radiology Cm Pollard, Low back pain, unspecified back pain laterality, unspecified chronicity, with sciatica presence unspecified 03/14/2018 Hospital Encounter Radiology Cm Pollard, Lumbar radiculopathy 03/14/2018 Office Visit Neurosurgery Cm Pollard, Lumbar radiculopathy , right (Primary Dx); Chronic right-sided low back pain with right-sided sciatica 03/14/2018 Orders Only Neurosurgery Cm Pollard, Low back pain, unspecified back pain laterality, unspecified chronicity, with sciatica presence unspecified (Primary Dx) 03/04/2018 Orders Only Neurosurgery Cm Pollard, Lumbar radiculopathy (Primary Dx) 03/01/2018 Telephone Neurosurgery Cm Pollard MD 02/28/2018 Refill Endocrinology Ekta Burroughs, Hypogonadism in male MA (Primary Dx) 10/15/2017 Office Visit Endocrinology Darrell Luis, Hypogonadism in male (Primary Dx); Osteopenia of multiple sites after 09/11/2017 Family History Medical History Relation Name Comments [...] Assigned at Date Recorded Not on file Job Start Date Occupation Industry Not on file Not on file Not on file Travel History Travel Start Travel End No recent travel history available. Last Filed Vital Signs Vital Sign Reading Time Taken Blood Pressure 177/90 04/04/2018 11:33 AM JUNIOR ART DIRECTOR Pulse 72 04/04/2018 11:33 AM JUNIOR ART DIRECTOR Temperature - - Respiratory Rate - - Oxygen Saturation - - Inhaled Oxygen Concentration - - Weight 87 kg (191 lb 12.8 oz) 04/04/2018 11:33 AM JUNIOR ART DIRECTOR Height 190.5 cm (6' 3") 04/04/2018 11:33 AM JUNIOR ART DIRECTOR Body Mass Index 23.97 04/04/2018 11:33 AM JUNIOR ART DIRECTOR Plan of Treatment Date Type Specialty Care Team Description 11/04/2018 Office Visit Endocrinology Darrell Luis MD [address] [place] [address] [phone] Health Maintenance Due Date Last Done Comments COLONOSCOPY SCREENING 01/10/2004 SHINGLES VACCINES (#1) 01/10/2004 INFLUENZA VACCINE 09/26/2018 Implants Implanted Type Area Can Maker Device Shelf Model / Identifier Expiration Serial / Date Lot System Spine Selnt For Dural Selng Exact 5ml Duraseal - [id number] Cardiovascular N/A: INTEGRA 01/25/2018 [id number] / Implanted: Qty: 1 on 11/29/2016 by Cm Pollard MD Implants N/A LIFESCIENCE / NEURO [id number] Matrix Hmstc Floseal 10ml W/ Humn F2 - [id number] Surgical N/A: ESTES [id number] / Implanted: Qty: 1 on 11/29/2016 by Cm Pollard MD Implants; N/A BIOSCIENCE / Expanders; [id number] Extenders; Surgical Wires Procedures Procedure Name Priority Date/Time Associated Diagnosis Comments BONE SPECIFIC ALK Routine 04/04/2018 12:10 Hypogonadism in male Results for this PHOSPHATASE PM JUNIOR ART DIRECTOR Osteopenia of procedure are in multiple sites the results section. TESTOSTERONE LEVEL, Routine 04/04/2018 12:10 Hypogonadism in male Results for this FREE AND TOTAL, MALE PM JUNIOR ART DIRECTOR Osteopenia of procedure are in multiple sites the results section. CT LUMBAR SPINE WO Routine 03/14/2018 5:10 Low back pain, Results for this CONTRAST PM JUNIOR ART DIRECTOR unspecified back pain procedure are in laterality, the results unspecified section. chronicity, with sciatica presence unspecified XR LUMBAR SPINE Routine 03/14/2018 4:11 Lumbar radiculopathy Results for this COMPLETE W BENDING PM JUNIOR ART DIRECTOR procedure are in the results section. COMPREHENSIVE Routine 12/18/2017 11:10 Hypogonadism in male Results for this METABOLIC PANEL AM CDT procedure are in the results section. CBC WITH PLATELET AND Routine 12/18/2017 11:10 Hypogonadism in male Results for this DIFFERENTIAL AM CDT procedure are in the results section. TESTOSTERONE LEVEL, Routine 12/18/2017 11:10 Hypogonadism in male Results for this FREE AND TOTAL, MALE AM CDT procedure are in the results section. after 09/11/2017 Results Bone specific alk phosphatase (04/04/2018 12:10 PM JUNIOR ART DIRECTOR) Alkaline phosphatase, 10.9 7.6 - 14.9 mcg/L [facility] Specimen Blood Narrative Performed At FASTING:NO [facility] FASTING: NO Resulting Agency Comment Performing Organization Information: Site ID: [id number] Name: [employer], Address: [address] [place] [phone] Director: Maura Vernon MD,PhD,ELIZABETH Performing Organization Address City/State/Zipcode Phone Number [facility] [address] [place] [address] [phone] [facility] Testosterone level, free and total, male (04/04/2018 12:10 PM JUNIOR ART DIRECTOR)Only the most recent of2 resultswithin the time period is included. Pathologist [facility] Testosterone, 691 250 - 1,100 [facility] total, lc/ms/ms Comment: ng/dL NINFA CORNELIUS Men with clinically significant hypogonadal symptoms and testosterone values repeatedly in the range of the 200-300 ng/dL or less, may benefit from testosterone treatment after adequate risk and benefits counseling. Testosterone, 66.6 35.0 - 155.0 [facility] free Comment: pg/mL NINFA CORNELIUS Data from J Clin Invest 1974:53:819-828 and J Clin Endocrinol Metab 1973;36:9055-9368. Men with clinically significant hypogonadal symptoms and testosterone values repeatedly in the range of the 200-300 ng/dL or less, may benefit from testosterone treatment after adequate risk and benefits counseling. For additional information, please refer to http://education.Ask.com/faq/YVN742 (This link is being provided for informational/ educational purposes only.) This test was developed and its analytical performance characteristics have been determined by [facility]. It has not been cleared or approved by the US Food and Drug Administration. This assay has been validated pursuant to the CLIA regulations and is used for clinical purposes. Specimen Blood Narrative Performed At FASTING:NO [facility] FASTING: NO Resulting Agency Comment Performing Organization Information: Site ID: [id number] Name: [employer] [place] Address: [id number] [place] [phone] Director: Anival Christie M.D., Ph.D Performing Organization Address City/State/Zipcode Phone Number [facility] [place] [address] [place] [address] CT Lumbar Spine Wo Contrast (03/14/2018 5:10 PM JUNIOR ART DIRECTOR) Specimen Narrative Performed At EXAMINATION:CT LUMBAR SPINE WO CONTRAST [facility] CLINICAL HISTORY:M54.5 Low back pain, lumbago COMPARISON:None. TECHNIQUE: Axial helical CT images throughout the lumbar spine were performed without IV contrast. Sagittal and coronal reformatted images were generated. All CT images were acquired using low-dose technique with automated exposure control. FINDINGS: There is no evidence of acute fracture, subluxation, or dislocation. There is normal lumbar lordosis and alignment. Vertebral bodies are preserved. There is no evidence of paraspinal hematoma. There are postoperative changes related to right-sided laminectomy at L4-L5 level. Spondylotic disc and facet changes are seen at L5-S1 level with no canal stenosis or foraminal narrowing. Visualized paraspinal soft tissues are unremarkable. IMPRESSION: No acute lumbar spine bony abnormality. Postoperative changes at L4-L5 and the right side. Spondylotic disc and facet changes at L5-S1 level. [id number] Procedure Note Hm Interface, Radiology Results Incoming - 03/14/2018 5:18 PM JUNIOR ART DIRECTOR EXAMINATION: CT LUMBAR SPINE WO CONTRAST CLINICAL HISTORY: M54.5 Low back pain, lumbago COMPARISON: None. TECHNIQUE: Axial helical CT images throughout the lumbar spine were performed without IV contrast. Sagittal and coronal reformatted images were generated. All CT images were acquired using low-dose technique with automated exposure control. FINDINGS: There is no evidence of acute fracture, subluxation, or dislocation. There is normal lumbar lordosis and alignment. Vertebral bodies are preserved. There is no evidence of paraspinal hematoma. There are postoperative changes related to right-sided laminectomy at L4-L5 level. Spondylotic disc and facet changes are seen at L5-S1 level with no canal stenosis or foraminal narrowing. Visualized paraspinal soft tissues are unremarkable. IMPRESSION: No acute lumbar spine bony abnormality. Postoperative changes at L4-L5 and the right side. Spondylotic disc and facet changes at L5-S1 level. [id number] Performing Organization Address [facility] Phone Number [facility] [address] [place] [address] XR Lumbar Spine Complete W Flex and Ext (03/14/2018 4:11 PM JUNIOR ART DIRECTOR) Specimen Narrative Performed At EXAMINATION:XR LUMBAR SPINE COMPLETE W FLEX & EXTEND [facility] CLINICAL HISTORY:M54.16 Radiculopathylumbar region, radiculopathy COMPARISON:August 23, 2017 IMPRESSION: 6 views of lumbar spine were obtained. 5 nonrib-bearing lumbar type vertebrae. No pars defects on the oblique views. Lumbar spine alignment is within normal limits. No compression fractures or aggressive bony lesions. Multilevel disc space narrowing and endplate degenerative changes. [facility]-[id number] Procedure Note Interface, Radiology Results Incoming - 03/14/2018 6:16 PM JUNIOR ART DIRECTOR EXAMINATION: XR LUMBAR SPINE COMPLETE W FLEX & EXTEND CLINICAL HISTORY: M54.16 Radiculopathy lumbar region, radiculopathy COMPARISON: August 23, 2017 IMPRESSION: 6 views of lumbar spine were obtained. 5 nonrib-bearing lumbar type vertebrae. No pars defects on the oblique views. Lumbar spine alignment is within normal limits. No compression fractures or aggressive bony lesions. Multilevel disc space narrowing and endplate degenerative changes. [facility]-[id number] Performing Organization Address [facility] Centercode Phone Number [facility] [address] [place] [address] CBC with platelet and differential (12/18/2017 11:10 AM CDT) WBC 6.5 3.8 - 10.8 [facility] Thousand/uL [place] RBC 4.31 4.20 - 5.80 [facility] Million/uL [place] HGB 13.7 13.2 - 17.1 [facility] g/dL [place] HCT 40.6 38.5 - 50.0 % [facility] [place] MCV 94.2 80.0 - 100.0 fL [facility] [place] MCH 31.8 27.0 - 33.0 pg [facility] [place] MCHC 33.7 32.0 - 36.0 [facility] g/dL [place] RDW 11.8 11.0 - 15.0 % [facility] [place] Platelet count 195 140 - 400 [facility] Thousand/uL [place] MPV 11.4 7.5 - 12.5 fL [facility] [place] Neutrophils, absolute 3,835 1,500 - 7,800 [facility] cells/uL [place] Lymphocytes, absolute 1,703 850 - 3,900 [facility] cells/uL [place] Monocytes, absolute 533 200 - 950 [facility] cells/uL [place] Eosinophils, absolute 338 15 - 500 [facility] cells/uL [place] Basophils, absolute 91 0 - 200 [facility] cells/uL [place] Neutrophils 59 % [facility] [place] Lymphocytes 26.2 % [facility] [place] Monocytes 8.2 % [facility] [place] Eosinophils 5.2 % [facility] [employer] [place] Basophils + RC 1.4 % [facility] [place] Specimen Blood Narrative Performed At FASTING:NO [facility] FASTING: NO Resulting Agency Comment Performing Organization Information: Site ID: [id number] Name: [facility] Address: [address] [place] [phone] Director: Kristie Floyd Performing Organization Address City/State/Zipcode [place] [address] Comprehensive metabolic panel (12/18/2017 11:10 AM CDT) [facility] Glucose 114 65 - 139 [facility] Comment: mg/dL [place] Non-fasting reference interval BUN, whole blood 10 7 - 25 mg/dL [employer] [place] Creatinine 0.97 0.70 - 1.25 [facility] Comment: mg/dL [place] For patients >49 years of age, the reference limit for Creatinine is approximately 13% higher for people identified as -[place]. EGFR Non-Afr. 83 > OR=60 [facility] [place] mL/min/1.73m [place] 2 EGFR 96 > OR=60 [facility] [place] mL/min/1.73m [place] 2 BUN/creatinine NOT APPLICABLE 6 - 22 [facility] ratio (calc) [place] Sodium 139 135 - 146 [facility] mmol/L [place] Potassium 4.6 3.5 - 5.3 [facility] mmol/L [place] Chloride 103 98 - 110 [facility] mmol/L [place] CO2 29 20 - 32 [facility] mmol/L [place] Calcium 9.2 8.6 - 10.3 [facility] mg/dL [place] Protein 6.7 6.1 - 8.1 [facility] g/dL [place] Albumin, S 4.0 3.6 - 5.1 [facility] g/dL [place] Globulin, total 2.7 1.9 - 3.7 [facility] g/dL (calc) [place] Albumin/globulin 1.5 1.0 - 2.5 [facility] ratio (calc) [place] Total bilirubin 0.5 0.2 - 1.2 [facility] mg/dL [place] Alkaline 62 40 - 115 U/L [facility] phosphatase [place] AST 18 10 - 35 U/L [facility] [place] ALT 15 9 - 46 U/L [facility] [place] Specimen Blood Narrative Performed At FASTING:NO [facility] FASTING: NO Resulting Agency Comment Performing Organization Information: Site ID: [id number] Name: [facility] Address: [address] [place] [address] Director: Kristie Floyd Performing Organization Address City/State/Zipcode Phone Number [facility] [place] [address] [place] [address] after 09/11/2017 Insurance Payer Benefit Plan / Subscriber ID Effective Dates Phone Address Type Group MEDICARE MEDICARE PART A AND xxxxxxxxxxx 2007-[place], [place] Medicare B nt AETNA AETNA [facility] xxxxxxxxx 2000-[place] Indemnity INDEMNITY t Advance Directives Patient has advance care planning documents on file. For more information, please contact:[place] [address]
[2018-09-12] MEDS ORDERED: DOXYCYCLINE 100 MG CAP PO ONE (15:55)
--- NOTE | 2018-09-12 16:06 | RAD REPORT ---
EXAM DESCRIPTION: RAD - Foot Right 3 View - 09/12/2018 3:32 pm CLINICAL HISTORY: Right foot pain status post injury FINDINGS: Prominent vertical lucencies are present within the fourth proximal phalanx. These probabl y represent nondisplaced fractures, less likely prominent trabecula. Clinical correlation is needed t o confirm that the patient has point tenderness in this region. No dislocation
--- NOTE | 2018-09-12 16:15 | ER ---
Nurse's Notes [facility] Name: Filippo Mcguire Age: 63 yrs Sex: Male : 1955 Arrival Date: 09/12/2018 Time: 14:46 Bed 28 Private MD: Sarthak Bates E Diagnosis: NONDISPLACED FRACTURE OF RIGHT FOURTH PROXIMAL PHALANX - TOE Presentation: 09/12 14:53 Presenting complaint: Stubbed right 4th toe x 4 in the last week, now c/o swelling and hb pain 7/10. Transition of care: patient was not received from another setting of care. Onset of symptoms was September 12, 2018. Risk Assessment: Do you want to hurt yourself or someone else? Patient reports no desire to harm self or others. Care prior to arrival: None. 14:53 Method Of Arrival: Ambulatory hb 14:53 Acuity: PIOTR 4 hb 15:24 Initial Sepsis Screen: Does the patient meet any 2 criteria? No. Patient's initial rv sepsis screen is negative. Does the patient have a suspected source of infection? No. Patient's initial sepsis screen is negative. Historical: - Allergies: 14:56 Morphine; hb 14:56 PENICILLINS; hb - Home Meds: 14:56 Methadone Oral [Active]; Robaxin Oral [Active]; gabapentin Oral [Active]; hb - PMHx: 14:56 chronic back pain; hb - PSHx: 14:56 Back surgery; hb - Immunization history:: Adult Immunizations up to date. - Social history:: Smoking status: Patient/guardian denies using tobacco. - Ebola Screening: : No symptoms or risks identified at this time. Screenin:23 Abuse screen: Denies threats or abuse. Denies injuries from another. Nutritional rv screening: No deficits noted. Tuberculosis screening: No symptoms or risk factors identified. Fall Risk None identified. Assessment: 15:00 General: Appears in no apparent distress. comfortable, Behavior is calm, cooperative. rv 15:00 Pain: Complains of pain in Right third toenail. Neuro: Level of Consciousness is awake, rv alert, obeys commands, Oriented to person, place, time, situation. Cardiovascular: Patient's skin is warm and dry. Respiratory: Airway is patent. GI: No signs and/or symptoms were reported involving the gastrointestinal system. : No signs and/or symptoms were reported regarding the genitourinary system. EENT: No signs and/or symptoms were reported regarding the EENT system. Derm: Wound noted Right third toenail. Musculoskeletal: No signs and/or symptoms reported regarding the musculoskeletal system. Vital Signs: 14:52 BP 181 / 94; Pulse 72; Resp 16; Temp 99; Pulse Ox 100% ; Weight 84.82 kg; Height 6 ft. hb 3 in. (190.50 cm); Pain 7/10; 16:23 BP 155 / 88; Pulse 71; Resp 16; Temp 98.7; Pulse Ox 100% on R/A; rv 14:52 Body Mass Index 23.37 (84.82 kg, 190.50 cm) hb ED Course: 14:46 Patient arrived in ED. ag5 14:46 Sarthak Bates MD is Private Physician. ag5 14:55 Triage completed. hb 14:55 Arm band placed on. hb 15:02 Rafiq Nye RN is Primary Nurse. rv 15:16 Shayna Sierra FNP-C is [facility]. snw 15:16 Irvin Patel MD is Attending Physician. snw 15:24 Patient has correct armband on for positive identification. Bed in low position. Call rv light in reach. Side rails up X 1. Pulse ox on. NIBP on. 15:33 Foot Right 3 View XRAY In Process Unspecified. EDMS 16:03 Peng wrap to right ankle and right foot Ortho shoe applied to right foot. lt1 16:11 Sarthak Bates MD is Referral Physician. snw 16:22 No provider procedures requiring assistance completed. Patient did not have IV access rv during this emergency room visit. Administered Medications: 15:52 Drug: Doxycycline 100 mg Route: PO; rv 16:25 Follow up: Response: No adverse reaction rv Outcome: 16:14 Discharge ordered by . snw 16:24 Discharged to home ambulatory. rv 16:24 Condition: good 16:24 Discharge instructions given to patient, Instructed on discharge instructions, follow up and referral plans. medication usage, Demonstrated understanding of instructions, follow-up care, medications, Prescriptions given X 1. 16:25 Patient left the ED. rv Signatures: Dispatcher [employer] EDWA Shayna Sierra FNP-C FNP-Csnw Danilele Parsons RN RN hb Rafiq Nye RN RN rv Km, Mariam 5 Samantha Iniguez 1
--- NOTE | 2018-09-12 16:15 | EDPHYS ---
Physician Documentation [facility] Name: Filippo Mcguire Age: 63 yrs Sex: Male : 1955 Arrival Date: 09/12/2018 Time: 14:46 Bed 28 Private MD: Sarthak Bates E ED Physician Irvin Patel HPI: 09/12 15:26 This 63 yrs old Male presents to ER via Ambulatory with complaints of Toe snw Injury. 15:26 The patient presents with pain, that is acute, swelling, tenderness. The complaints snw affect the right foot. Context: The problem was sustained at home, resulted from stubbing toe on furniture. the patient can fully bear weight, the patient is able to ambulate. Onset: The symptoms/episode began/occurred suddenly, 1 week(s) ago, x 4 and then pt went off on his boat and slipped, striking right 4th toe. Associated signs and symptoms: The patient has no apparent associated signs or symptoms. Severity of symptoms: At their worst the symptoms were mild. The patient has not experienced similar symptoms in the past. It is unknown whether or not the patient has recently seen a physician. Tetanus imm up to date. Historical: - Allergies: 14:56 Morphine; hb 14:56 PENICILLINS; hb - Home Meds: 14:56 Methadone Oral [Active]; Robaxin Oral [Active]; gabapentin Oral [Active]; hb - PMHx: 14:56 chronic back pain; hb - PSHx: 14:56 Back surgery; hb - Immunization history:: Adult Immunizations up to date. - Social history:: Smoking status: Patient/guardian denies using tobacco. - Ebola Screening: : No symptoms or risks identified at this time. ROS: 15:25 Constitutional: Negative for fever, chills, and weight loss, Eyes: Negative for injury, snw pain, redness, and discharge, ENT: Negative for injury, pain, and discharge, Neck: Negative for injury, pain, and swelling, Cardiovascular: Negative for chest pain, palpitations, and edema, Respiratory: Negative for shortness of breath, cough, wheezing, and pleuritic chest pain, Abdomen/GI: Negative for abdominal pain, nausea, vomiting, diarrhea, and constipation, Back: Negative for injury and pain, : Negative for injury, bleeding, discharge, and swelling, Skin: Negative for injury, rash, and discoloration, Neuro: Negative for headache, weakness, numbness, tingling, and seizure. 15:25 MS/extremity: Positive for injury or acute deformity, of the right fourth toe. Exam: 15:22 Constitutional: This is a well developed, well nourished patient who is awake, alert, snw and in no acute distress. Head/Face: Normocephalic, atraumatic. Eyes: Pupils equal round and reactive to light, extra-ocular motions intact. Lids and lashes normal. Conjunctiva and sclera are non-icteric and not injected. Cornea within normal limits. Periorbital areas with no swelling, redness, or edema. ENT: Nares patent. No nasal discharge, no septal abnormalities noted. Tympanic membranes are normal and external auditory canals are clear. Oropharynx with no redness, swelling, or masses, exudates, or evidence of obstruction, uvula midline. Mucous membranes moist. Neck: Trachea midline, no thyromegaly or masses palpated, and no cervical lymphadenopathy. Supple, full range of motion without nuchal rigidity, or vertebral point tenderness. No Meningismus. Chest/axilla: Normal chest wall appearance and motion. Nontender with no deformity. No lesions are appreciated. Cardiovascular: Regular rate and rhythm with a normal S1 and S2. No gallops, murmurs, or rubs. Normal PMI, no JVD. No pulse deficits. Respiratory: Lungs have equal breath sounds bilaterally, clear to auscultation and percussion. No rales, rhonchi or wheezes noted. No increased work of breathing, no retractions or nasal flaring. Abdomen/GI: Soft, non-tender, with normal bowel sounds. No distension or tympany. No guarding or rebound. No evidence of tenderness throughout. Back: No spinal tenderness. No costovertebral tenderness. Full range of motion. Neuro: Awake and alert, GCS 15, oriented to person, place, time, and situation. Cranial nerves II-XII grossly intact. Motor strength 5/5 in all extremities. Sensory grossly intact. Cerebellar exam normal. Normal gait. Psych: Awake, alert, with orientation to person, place and time. Behavior, mood, and affect are within normal limits. 15:22 Musculoskeletal/extremity: ROM: no acute changes, Circulation is intact in all extremities. Sensation intact. right fourth toe stubbed multiple times this week, tender, mildly edematous, no noted laceration. 15:22 Skin: Appearance: normal except for affected area, lower right leg with mild erythema, pt states it is sunburn. Right foot mildly edematous. dry cracked skin to plantar heel. 15:22 Neuro: Orientation: is normal. Vital Signs: 14:52 BP 181 / 94; Pulse 72; Resp 16; Temp 99; Pulse Ox 100% ; Weight 84.82 kg; Height 6 ft. hb 3 in. (190.50 cm); Pain 7/10; 16:23 BP 155 / 88; Pulse 71; Resp 16; Temp 98.7; Pulse Ox 100% on R/A; rv 14:52 Body Mass Index 23.37 (84.82 kg, 190.50 cm) hb MDM: 15:17 Patient medically screened. snw 16:17 Data reviewed: vital signs, nurses notes. Data interpreted: Pulse oximetry: on room air snw is 100 %. Interpretation: normal. Counseling: I had a detailed discussion with the patient and/or guardian regarding: the historical points, exam findings, and any diagnostic results supporting the discharge/admit diagnosis, radiology results, the need for outpatient follow up, to return to the emergency department if symptoms worsen or persist or if there are any questions or concerns that arise at home. Special discussion: I have referred the patient to see his PCP for further evaluation of high blood pressure. Based on the history and exam findings, there is no indication for further emergent testing or inpatient evaluation. I discussed with the patient/guardian the need to see the primary care provider for further evaluation of the symptoms. 09/12 15:12 Order name: Foot Right 3 View XRAY; Complete Time: 16:10 snw 09/12 15:43 Order name: Post-op Orthopedic Shoe; Complete Time: 15:52 snw 09/12 15:43 Order name: Peng wrap-joint; Complete Time: 15:52 snw Administered Medications: 15:52 Drug: Doxycycline 100 mg Route: PO; rv 16:25 Follow up: Response: No adverse reaction rv Disposition: 09/12/18 16:14 Discharged to Home. Impression: NONDISPLACED FRACTURE OF RIGHT FOURTH PROXIMAL PHALANX - TOE. - Condition is Stable. - Discharge Instructions: Cellulitis, Adult, Sunburn, Adult, Toe Fracture, Rehydration, Adult. - Prescriptions for Doxycycline Hyclate 100 mg Oral Tablet - take 1 tablet by ORAL route every 12 hours; 20 tablet. - Medication Reconciliation Form, Thank You Letter, Antibiotic Education, Prescription Opioid Use form. - Follow up: Sarthak Bates MD; When: 2 - 3 days; Reason: Recheck today's complaints, Continuance of care, Re-evaluation by your physician. Follow up: Emergency Department; When: As needed; Reason: Worsening of condition. Addendum: 09/14/2018 07:46 Co-signature as Attending Physician, Irvin Patel MD. g s Signatures: Dispatcher [employer] EDMS Shayna Sierra, BOTTLE SELECTOR-C BOTTLE SELECTOR-Csnw Danielle Parsons, RN RN Irvin Patel MD MD Rafiq Nye RN RN rv Corrections: (The following items were deleted from the chart) 09/12 16:25 16:14 09/12/2018 16:14 Discharged to Home. Impression: NONDISPLACED FRACTURE OF RIGHT rv FOURTH PROXIMAL PHALANX - TOE. Condition is Stable. Forms are Medication Reconciliation Form, Thank You Letter, Antibiotic Education, Prescription Opioid Use. Follow up: Sarthak Bates; When: 2 - 3 days; Reason: Recheck today's complaints, Continuance of care, Re-evaluation by your physician. Follow up: Emergency Department; When: As needed; Reason: Worsening of condition. snw
== END 2018-09-12 16:25 | disposition home or self-care (01) ==
LOC: ER 14:44
DX: S92.514A Nondisplaced fracture of proximal phalanx of right lesser toe(s), initial encounter for closed fracture (principal); W22.8XXA Striking against or struck by other objects, initial encounter; Z88.5 Allergy status to narcotic agent; Z88.0 Allergy status to penicillin
CPT/HCPCS: 99284

== ENCOUNTER 2019-02-24 16:53 | Emergency (ER) | payer OTHER ==
[2019-02-24] MEDS ORDERED: TETANUS & DIPHTHERIA TOX,ADULT 0.5 ML VIAL ONE (17:18)
[2019-02-24] MEDS ORDERED: LIDOCAINE 1% MPF 5 ML VIAL ONE (17:18)
--- NOTE | 2019-02-24 18:09 | EDPHYS ---
Physician Documentation [facility] Name: Filippo Mcguire Age: 64 yrs Sex: Male : 1955 Arrival Date: 02/24/2019 Time: 16:56 Bed 30 Private MD: Sarthak Bates E ED Physician Bandar Crane HPI: 02/24 18:39 This 64 yrs old Male presents to ER via Ambulatory with complaints of kb Laceration To Hand. 18:39 The patient has a laceration related to: Pt reports he was applying pressure to a pry kb bar and it slipped causing laceration to left hand occurred at home, and there are no complicating factors. The injury was accidental. The laceration(s) is(are) located on the Left first web space. Onset: The symptoms/episode began/occurred just prior to arrival. Associated signs and symptoms: The patient has no apparent associated signs or symptoms. The patient has not experienced similar symptoms in the past. The patient has not recently seen a physician. Historical: - Allergies: 17:10 Morphine; sg 17:10 PENICILLINS; sg - PMHx: 17:10 chronic back pain; sg - PSHx: 17:10 Back surgery; sg - Immunization history:: Adult Immunizations unknown, Last tetanus immunization: unknown. - Social history:: Smoking status: Patient/guardian denies using tobacco. - Ebola Screening: : Patient negative for fever greater than or equal to 101.5 degrees Fahrenheit, and additional compatible Ebola Virus Disease symptoms Patient denies exposure to infectious person Patient denies travel to an Ebola-affected area in the 21 days before illness onset No symptoms or risks identified at this time. ROS: 17:38 Constitutional: Negative for fever, chills, and weight loss, Neck: Negative for injury, kb pain, and swelling, Cardiovascular: Negative for chest pain, palpitations, and edema, Respiratory: Negative for shortness of breath, cough, wheezing, and pleuritic chest pain, Abdomen/GI: Negative for abdominal pain, nausea, vomiting, diarrhea, and constipation, MS/Extremity: Negative for injury and deformity, Neuro: Negative for headache, weakness, numbness, tingling, and seizure. 17:38 Skin: Positive for laceration(s), of the Left first web space. Exam: 18:38 Constitutional: This is a well developed, well nourished patient who is awake, alert, kb and in no acute distress. Head/Face: Normocephalic, atraumatic. ENT: Nares patent. No nasal discharge, no septal abnormalities noted. Tympanic membranes are normal and external auditory canals are clear. Oropharynx with no redness, swelling, or masses, exudates, or evidence of obstruction, uvula midline. Mucous membranes moist. Neck: Trachea midline, no thyromegaly or masses palpated, and no cervical lymphadenopathy. Supple, full range of motion without nuchal rigidity, or vertebral point tenderness. No Meningismus. Chest/axilla: Normal chest wall appearance and motion. Nontender with no deformity. No lesions are appreciated. Cardiovascular: Regular rate and rhythm with a normal S1 and S2. No gallops, murmurs, or rubs. Normal PMI, no JVD. No pulse deficits. Respiratory: Lungs have equal breath sounds bilaterally, clear to auscultation and percussion. No rales, rhonchi or wheezes noted. No increased work of breathing, no retractions or nasal flaring. Abdomen/GI: Soft, non-tender, with normal bowel sounds. No distension or tympany. No guarding or rebound. No evidence of tenderness throughout. Back: No spinal tenderness. No costovertebral tenderness. Full range of motion. MS/ Extremity: Pulses equal, no cyanosis. Neurovascular intact. Full, normal range of motion. Neuro: Awake and alert, GCS 15, oriented to person, place, time, and situation. Cranial nerves II-XII grossly intact. Motor strength 5/5 in all extremities. Sensory grossly intact. Cerebellar exam normal. Normal gait. 18:38 Skin: injury, laceration(s), the wound is approximately 1 cm(s), of the Left first web space, that can be described as clean, no foreign body, irregular, without bleeding. Vital Signs: 17:09 BP 132 / 77; Pulse 78; Resp 18; Temp 97.7; Pulse Ox 98% on R/A; Weight 79.38 kg; Height sg 5 ft. 10 in. (177.80 cm); Pain 0/10; 18:18 BP 128 / 76; Pulse 68; Resp 17; Pulse Ox 99% on R/A; rv 17:09 Body Mass Index 25.11 (79.38 kg, 177.80 cm) Laceration: 18:42 Wound Repair of 1cm ( 0.4in ) subcutaneous laceration to Left first web space. kb Irregularly shaped.. Distal neuro/vascular/tendon intact. Anesthesia: Wound infiltrated with 3 mls of 1% lidocaine. Wound prep: Extensive cleansing with hibiclenz by nurse by me, Wound irrigation with saline by nurse by me. Skin closed with 4 4-0 Prolene using simple sutures and sterile technique. Dressed with Neosporin. Patient tolerated well. MDM: 17:19 Patient medically screened. kb 18:36 Data reviewed: vital signs, nurses notes. Data interpreted: Pulse oximetry: on room air kb is 99 %. Interpretation: normal. Counseling: I had a detailed discussion with the patient and/or guardian regarding: the historical points, exam findings, and any diagnostic results supporting the discharge/admit diagnosis, radiology results, the need for outpatient follow up, a family practitioner, to return to the emergency department if symptoms worsen or persist or if there are any questions or concerns that arise at home. 02/24 17:48 Order name: Hand Left 3 View; Complete Time: 18:15 EDMS Administered Medications: 17:18 Drug: Tetanus-Diphtheria Toxoid Adult 0.5 ml {Inside Wirer: [employer]. Exp: rv 03/13/2021. Lot #: [id number]. } Route: IM; Site: left deltoid; 18:18 Follow up: Response: No adverse reaction rv Disposition: 02/24/19 18:08 Discharged to Home. Impression: Laceration without foreign body of left hand. - Condition is Stable. - Discharge Instructions: Laceration Care, Adult, [id number]. - Medication Reconciliation Form, Thank You Letter, Antibiotic Education, Prescription Opioid Use form. - Follow up: Emergency Department; When: As needed; Reason: Worsening of condition. Follow up: Private Physician; When: 2 - 3 days; Reason: Recheck today's complaints, Continuance of care, Re-evaluation by your physician. Addendum: 03/03/2019 07:25 Co-signature as Attending Physician, Bandar Crane MD I agree with the assessment and c perea plan of care. Signatures: Dispatcher [employer] EDMaryann Balbuena, AN-C AN-Ckb Delaney, Darrell, RN RN Bandar Hyde MD MD cha Vicente, Ronaldo, RN RN rv Corrections: (The following items were deleted from the chart) 02/24 17:48 17:28 Hand Right 3 View+RAD.RAD.BRZ ordered. EDMS EDMS 18:19 18:08 02/24/2019 18:08 Discharged to Home. Impression: Laceration without foreign body rv of left hand. Condition is Stable. Forms are Medication Reconciliation Form, Thank You Letter, Antibiotic Education, Prescription Opioid Use. Follow up: Emergency Department; When: As needed; Reason: Worsening of condition. Follow up: Private Physician; When: 2 - 3 days; Reason: Recheck today's complaints, Continuance of care, Re-evaluation by your physician. kb
--- NOTE | 2019-02-24 18:09 | ER ---
Nurse's Notes [facility] Name: Filippo Mcguire Age: 64 yrs Sex: Male : 1955 Arrival Date: 02/24/2019 Time: 16:56 Bed 30 Private MD: Sarthak Bates E Diagnosis: Laceration without foreign body of left hand Presentation: 02/24 17:08 Presenting complaint: Patient states: at about 1300 today I was using a metal bar to sg pry up an object i was walking on when it slipped and punch a hole in the webbing of my thumb and index finger. Transition of care: patient was not received from another setting of care. Complicating Factors: There are no complicating factors for this patient. Onset of symptoms was February 24, 2019 at 13:00. Risk Assessment: Do you want to hurt yourself or someone else? Patient reports no desire to harm self or others. Initial Sepsis Screen: Does the patient meet any 2 criteria? No. Patient's initial sepsis screen is negative. Does the patient have a suspected source of infection? No. Patient's initial sepsis screen is negative. Care prior to arrival: None. 17:08 Method Of Arrival: Ambulatory sg 17:08 Acuity: PIOTR 4 sg Historical: - Allergies: 17:10 Morphine; sg 17:10 PENICILLINS; sg - PMHx: 17:10 chronic back pain; sg - PSHx: 17:10 Back surgery; sg - Immunization history:: Adult Immunizations unknown, Last tetanus immunization: unknown. - Social history:: Smoking status: Patient/guardian denies using tobacco. - Ebola Screening: : Patient negative for fever greater than or equal to 101.5 degrees Fahrenheit, and additional compatible Ebola Virus Disease symptoms Patient denies exposure to infectious person Patient denies travel to an Ebola-affected area in the 21 days before illness onset No symptoms or risks identified at this time. Screenin:22 Abuse screen: Denies threats or abuse. Denies injuries from another. Nutritional rv screening: No deficits noted. Tuberculosis screening: No symptoms or risk factors identified. Fall Risk None identified. Assessment: 17:22 General: Appears in no apparent distress. comfortable, Behavior is calm, cooperative. rv Pain: Complains of pain in left hand. Neuro: Level of Consciousness is awake, alert, obeys commands, Oriented to person, place, time, situation. Cardiovascular: Patient's skin is warm and dry. Respiratory: Airway is patent. Musculoskeletal: Swelling absent. Injury Description: Laceration sustained to Left first web space is jagged, superficial, 0.5 to 2.5 cm long, not bleeding. Vital Signs: 17:09 BP 132 / 77; Pulse 78; Resp 18; Temp 97.7; Pulse Ox 98% on R/A; Weight 79.38 kg; Height sg 5 ft. 10 in. (177.80 cm); Pain 0/10; 18:18 BP 128 / 76; Pulse 68; Resp 17; Pulse Ox 99% on R/A; rv 17:09 Body Mass Index 25.11 (79.38 kg, 177.80 cm) sg ED Course: 16:56 Patient arrived in ED. mr 16:57 Sarthak Bates MD is Private Physician. mr 17:03 Rafiq Nye, HOLLY is Primary Nurse. rv 17:09 Triage completed. sg 17:10 Arm band placed on. sg 17:19 Maryann Menjivar [facility]C [facility]. kb 17:19 Bandar Crane MD is Attending Physician. kb 17:21 Wound care: to laceration located on Left first web space was cleaned with Hibiclens, rv irrigated with normal saline, dressed with 4X4s, Patient tolerated well. 17:23 Patient has correct armband on for positive identification. Call light in reach. Side rv rails up X 1. Pulse ox on. NIBP on. 17:50 Hand Left 3 View In Process Unspecified. EDMS 18:19 Assist provider with laceration repair on Left first web space that was 2.5 cm. or less rv using sutures. Set up tray. Performed by Maryann KEARNEY Dressed with 4X4s, Neosporin, Patient tolerated well. Patient did not have IV access during this emergency room visit. Administered Medications: 17:18 Drug: Tetanus-Diphtheria Toxoid Adult 0.5 ml {Fifth Hand: [employer]. Exp: rv 03/13/2021. Lot #: [id number]. } Route: IM; Site: left deltoid; 18:18 Follow up: Response: No adverse reaction rv Outcome: 18:08 Discharge ordered by . kb 18:19 Discharged to home ambulatory. rv 18:19 Condition: good 18:19 Discharge instructions given to patient, Instructed on discharge instructions, follow up and referral plans. wound care, Demonstrated understanding of instructions, follow-up care, wound care. 18:19 Patient left the ED. rv Signatures: Dispatcher [employer] EDMaryann Balbuena, SWATCH PASTER-C SWATCH PASTER-Darrell Gore, Moriah Mckee RN mr Rafiq Nye RN RN rv Corrections: (The following items were deleted from the chart) 17:48 17:46 In radiology for Hand Right 3 View+RAD.RAD.BRZ. EDAZ EDAZ
--- NOTE | 2019-02-24 18:12 | RAD REPORT ---
EXAM DESCRIPTION: RAD -Hand Left 3 View - 02/24/2019 5:51 pm CLINICAL HISTORY: Left hand pain status post injury FINDINGS: No fracture or dislocation is seen. Soft tissue laceration involves the first web space
[2019-02-24 18:28] VITALS: TEMP 97.7
[2019-02-24 18:29] VITALS: BP 128/76; O2SAT 99
== END 2019-02-24 18:19 | disposition home or self-care (01) ==
LOC: ER 16:53
PROC: 0JQK0ZZ Repair Left Hand Subcutaneous Tissue and Fascia, Open Approach (ICD-10-PCS; principal; 2019-02-24)
DX: S61.412A Laceration without foreign body of left hand, initial encounter (principal); W27.8XXA Contact with other nonpowered hand tool, initial encounter; Y93.89 Activity, other specified; Y92.009 Unspecified place in unspecified non-institutional (private) residence as the place of occurrence of the external cause; Z88.0 Allergy status to penicillin; Z88.5 Allergy status to narcotic agent; Z23 Encounter for immunization
CPT/HCPCS: 90471; 90714; 99284

== ENCOUNTER 2022-04-21 22:06 | Emergency (ER) | payer OTHER ==
--- OUTSIDE RECORDS SUMMARY | 2022-04-21 22:08 | XMS REPORT | Continuity of Care Document ---
:1955 Author Organization [facility] t Address [address] [place] [address] Care Team Providers Name Role Phone Paulo Stockton MD, Sarthak Primary Care Physician [phone] ALISSON GOYAL Attending Clinician Unavailable Problems Condition Condition Condition Status Onset Resolution Last Treating Co mments Source Name Details Category Date Date Treatment Clinician Date Chronic Chronic Disease Active Methodi right-side right-side 03-14 d low back d low back 00:00: Ho spita pain with pain with 00 l right-side right-side d sciatica d sciatica Hypogonadi Hypogonadi Disease Active M ethodi sm in male sm in male 06-05 00:00: Hospita 00 l Osteopenia Osteopenia Disease Active M ethodi of of 05-01 multiple multiple 00:00: Hospit a sites sites 00 l Low libido Low libido Disease Active M ethodi 05-01 00:00: Hospita 00 l Cervical Cervical Disease Active Metho di spondylosi spondylosi 11-16 s without s without 00:00: Hosp susanna myelopathy myelopathy 00 l Lumbar Lumbar Disease Active Methodi radiculopa radiculopa 11-16 thy, right thy, right 00:00: Ho spita 00 l Postural Postural Disease Active Metho di kyphosis kyphosis 11-16 of of 00:00: Hospita thoracic thoracic 00 l region region Allergies, Adverse Reactions, Alerts Allergy Allergy Status Severity Reaction(s) Onset Inactive Treating Comm ents Source Name Type Date Date Clinician Penicill Propensi Active Method i in G ty to 9-20 st adverse 00:00: Hospita reaction 00 l s to drug Family History Family Member Diagnosis Comments Start Date Stop Date Source Natural father Heart disease [facility] Natural father Arthritis [facility] Natural mother Hypertension [facility] Social History Social Habit Start Date Stop Date Quantity Comments Source History of tobacco Current smoker [facility] Alcohol intake 2019-12-10 2019-12-10 Current drinker [facility] dist 00:00:00 00:00:00 of alcohol Hospital (finding) Tobacco use and 2017-05-01 2017-05-01 Smokeless tobacco [facility] exposure 00:00:00 00:00:00 non-user Hospital Cigarettes smoked 2017-05-01 2017-05-01 [facility] current (pack per 00:00:00 00:00:00 Hospita l day) - Reported Alcohol Comment 2016-11-29 2016-11-29 3-4 cans of beer Met hodist 00:00:00 00:00:00 a day, "just Hospital depends" Tobacco Comment 2016-11-15 2016-11-15 quit "many years [facility] 00:00:00 00:00:00 ago" Hospital Sex Ass[birth year] At [birth year] [facility] 00:00:00 00:00:00 Hospital Smoking Status Start Date Stop Date Source Ex-smoker 2017-05-01 00:00:00 2017-05-01 00:00:00 [facility] Medications Ordered Filled Start Stop Current Ordering Indication Dosage Frequency Signature Comments Components Source Medication Medication Date Date Medication? Clinician (SIG) Name Name clomiPHENE 2020-02 Yes [id number] TAKE Met hodi (CLOMID) 50 1-22 ONE-HALF st mg tablet 00:00: (1/2) Hospita 00 TABLET(S) l BY MOUTH ONCE A DAY. vit A/vit 2019-02 Yes Take by Metho di C/vit 0-[address] E/zinc/doris 13:34: Hospit a er (ICAPS 23 l AREDS ORAL) docusate 2019-02 Yes 100mg Q.5D Take 100 Meth anabelle sodium 0-[address] (COLACE) 13:33: mouth 2 Hospit a 100 MG 58 (two) l capsule times a day. niacin 100 2019-02 Yes 100mg QD Take 100 Me thodi MG tablet 0-[address] 13:33: mouth Hospita 58 nightly. l cholecalcif 2019-02 Yes 2000U QD Take 2,000 Methodi kati, 0-[address] vitamin D3, 13:33: mouth Hospi ta (VITAMIN 58 daily. l D3) 2,000 unit capsule capsule losartan 2019-02 Yes Take by Method i potassium 0-[address] (LOSARTAN 13:33: Hospita ORAL) 58 l gabapentin Yes TAKE ONE Met [facility]odi (NEURONTIN) 11-01 (1) st 300 mg 00:00: CAPSULE(S) Hospi ta capsule 00 BY MOUTH l TWICE A DAY AND 2 CAPSULES AT BEDTIME DAILY. methadone Yes TAKE ONE Meth anabelle (DOLOPHINE) 10-26 () st 10 MG 00:00: TABLET(S) Hospita tablet 00 BY MOUTH l FOUR TIMES A DAY FOR PAIN. methocarbam Yes TAKE ONE Me thodi ol 10-26 () st (ROBAXIN) 00:00: TABLET(S) Hos brad 750 MG 00 BY MOUTH l tablet TWICE A DAY. Procedures This patient has no known procedures. Plan of Care Planned Activity Planned Date Details Comments Source Future Scheduled 2022-02-09 COVID-19 VACCINE (#1) [facility] Test 17:42:25 [code = COVID-19 VACCINE (#1)] Future Scheduled 2022-02-09 Hepatitis C screening [facility] Test 17:42:25 (procedure) [code = [id number]] Future Scheduled 2022-02-09 COLONOSCOPY SCREENING [facility] Test 17:42:25 [code = COLONOSCOPY SCREENING] Future Scheduled 2022-02-09 [facility]INGLES [facility]IN[facility] 17:42:25 of 2) [code = SHINGLES VACCINES (1 of 2)] Future Scheduled 2022-02-09 65+ PNEUMOCOCCAL [facility] Hospital Test 17:42:25 VACCINE (1 - PCV) [code = 65+ PNEUMOCOCCAL VACCINE (1 - PCV)] Future Scheduled 2022-02-09 INFLUENZA VACCINE Method ist Hospital Test 17:42:25 [code = INFLUENZA VACCINE] Encounters Start End Encounter Admission Attending Care Care Encounter Source Date/Time Date/Time Type Type Clinicians Facility Department ID 2019-12-10 2019-12-10 Outpatient JYOTSNA [facility] [id number] [address] [place] [address] 00:00:00 00:00:00 ALISSON [address] 2019-12-10 2019-12-10 Outpatient JYOTSNA, [facility] [id number] [address] [place] 00:00:00 00:00:00 ALISSON [address] Results This patient has no known results.
--- NOTE | 2022-04-21 22:38 | ER ---
Nurse's Notes [facility] Name: Filippo Mcguire Age: 67 yrs Sex: Male : 1955 Arrival Date: 04/21/2022 Time: 22:07 Bed 16 Private MD: Diagnosis: Food in esophagus Presentation: 04/21 22:12 Chief complaint: Patient states: i was eating dinner and something got stuck in my lg3 throat and i cant get it out. Coronavirus screen: Client denies travel out of the [place] in the last 14 days. At this time, the client does not indicate any symptoms associated with coronavirus-19. Ebola Screen: No symptoms or risks identified at this time. Initial Sepsis Screen: Does the patient meet any 2 criteria? No. Patient's initial sepsis screen is negative. Does the patient have a suspected source of infection? No. Patient's initial sepsis screen is negative. Risk Assessment: Do you want to hurt yourself or someone else? Patient reports no desire to harm self or others. Onset of symptoms was April 21, 2022. 22:12 Method Of Arrival: Ambulatory lg3 22:12 Acuity: PIOTR 4 lg3 Triage Assessment: 22:14 General: Appears in no apparent distress. uncomfortable, Behavior is cooperative, lg3 anxious. Pain: Denies pain. EENT: Reports difficulty swallowing. Neuro: No deficits noted. Plascencia Agitation-Sedation Scale (RASS): +1 Restless Level of Consciousness is awake, alert, obeys commands, Oriented to person, place, time, situation. Cardiovascular: No deficits noted. Denies chest pain, shortness of breath. Respiratory: No deficits noted. Respiratory effort is even, unlabored, Respiratory pattern is regular, symmetrical. GI: No deficits noted. No signs and/or symptoms were reported involving the gastrointestinal system. : No deficits noted. No signs and/or symptoms were reported regarding the genitourinary system. Derm: No deficits noted. No signs and/or symptoms reported regarding the dermatologic system. Skin is intact, is healthy with good turgor, Skin is dry, Skin is normal. Musculoskeletal: No deficits noted. No signs and/or symptoms reported regarding the musculoskeletal system. Circulation, motion, and sensation intact. Range of motion: intact in all extremities. Historical: - Allergies: 22:14 Morphine; lg3 22:14 PENICILLINS; lg3 - Home Meds: 22:14 gabapentin Oral [Active]; Methadone Oral [Active]; Robaxin Oral [Active]; lg3 - PMHx: 22:14 chronic back pain; lg3 - PSHx: 22:14 back; ACL; lg3 - Immunization history:: Adult Immunizations up to date, Client reports receiving the 2nd dose of the Covid vaccine, Pneumococcal vaccine is up to date, Flu vaccine is up to date. - Social history:: Smoking status: Patient denies any tobacco usage or history of. Patient uses alcohol, on a daily basis. Screenin:20 [facility] ED Fall Risk Assessment (Adult) History of falling in the last 3 months, ke1 including since admission No falls in past 3 months (0 pts) Confusion or Disorientation No (0 pts) Intoxicated or Sedated No (0 pts) Impaired Gait No (0 pts) Mobility Assist Device Used No (0 pt) Altered Elimination No (0 pt) Score/Fall Risk Level 0 - 2 = Low Risk. Abuse screen: Denies threats or abuse. Nutritional screening: No deficits noted. Tuberculosis screening: No symptoms or risk factors identified. Assessment: 22:44 Reassessment: Patient states feeling better. Patient states symptoms have improved. ke1 Vital Signs: 22:12 Weight 86.18 kg (R); Height 3 ft. 6 in. (106.68 cm) (R); lg3 22:15 Pulse 97; Pulse Ox 98% on R/A; mb9 22:16 Pulse 91; Resp 19 S; Temp 98.6(O); Pulse Ox 100% on R/A; lg3 22:12 Body Mass Index 75.73 (86.18 kg, 106.68 cm) lg3 ED Course: 22:00 Patient has correct armband on for positive identification. Bed in low position. ke1 22:07 Patient arrived in ED. ja2 22:07 Didier Camarillo MD is Attending Physician. bs3 22:14 Triage completed. lg3 22:14 Arm band placed on right wrist. lg3 22:33 Cordell López RN is Primary Nurse. ke1 22:37 Sarthak Villareal MD is Referral Physician. bs3 22:51 No provider procedures requiring assistance completed. Patient did not have IV access ke1 during this emergency room visit. Administered Medications: No medications were administered Medication: 22:52 VIS not applicable for this client. ke1 Outcome: 22:38 Discharge ordered by . bs3 22:51 Discharged to home ambulatory. ke1 22:51 Condition: good 22:51 Discharge instructions given to patient. 22:53 Patient left the ED. ke1 Signatures: Cammy Payne, RN RN lg3 Trudy Tobin Kouassi RN RN ke1 Didier Camarillo MD MD bs3 Moriah Gleason RN RN mb9
--- NOTE | 2022-04-21 22:38 | EDPHYS ---
Physician Documentation [facility] Name: Filippo Mcguire Age: 67 yrs Sex: Male : 1955 Arrival Date: 04/21/2022 Time: 22:07 Bed 16 Private MD: ED Physician Didier Camarillo HPI: 04/21 22:21 This 67 yrs old Male presents to ER via Ambulatory with complaints of Foreign bs3 Body In Throat. 22:21 He notes that he was eating steak and thinks that a small bit got stuck in his throat, bs3 denies any other complaints, he tried to cough and throw it up but was unable to. He notes this has happened before, but it has passed. No chest pain, sob or anything else bothering him. Historical: - Allergies: 22:14 Morphine; lg3 22:14 PENICILLINS; lg3 - Home Meds: 22:14 gabapentin Oral [Active]; Methadone Oral [Active]; Robaxin Oral [Active]; lg3 - PMHx: 22:14 chronic back pain; lg3 - PSHx: 22:14 back; ACL; lg3 - Immunization history:: Adult Immunizations up to date, Client reports receiving the 2nd dose of the Covid vaccine, Pneumococcal vaccine is up to date, Flu vaccine is up to date. - Social history:: Smoking status: Patient denies any tobacco usage or history of. Patient uses alcohol, on a daily basis. ROS: 22:21 Constitutional: Negative for fever, chills bs3 22:21 All other systems are negative. Exam: 22:21 Constitutional: Pt actively uncomfortable, spitting up Head/Face: Normocephalic, bs3 atraumatic. Eyes: Pupils equal round and reactive to light, extra-ocular motions intact. Lids and lashes normal. Neck: Trachea midline, no thyromegaly, no neck stiffness Chest/axilla: Normal chest wall appearance and motion. Nontender with no deformity. No lesions are appreciated. Cardiovascular: Regular rate and rhythm with a normal S1 and S2. symmetric pulses in upper extremities Respiratory: Lungs have equal breath sounds bilaterally, clear to auscultation, no respiratory distress Abdomen/GI: Soft, non-tender, no rebound or guarding Neuro: Awake and alert, GCS 15, oriented to person, place, time, and situation. Cranial nerves II-XII grossly intact. Motor strength 5/5 in all extremities. Sensory grossly intact. Vital Signs: 22:12 Weight 86.18 kg (R); Height 3 ft. 6 in. (106.68 cm) (R); lg3 22:15 Pulse 97; Pulse Ox 98% on R/A; mb9 22:16 Pulse 91; Resp 19 S; Temp 98.6(O); Pulse Ox 100% on R/A; lg3 22:12 Body Mass Index 75.73 (86.18 kg, 106.68 cm) lg3 MDM: 22:07 Patient medically screened. bs3 22:21 Data reviewed: vital signs, nurses notes. ED course: pt with likely esophageal food bs3 bolus. I gave carbonated beverage and he had sig improvement in symptoms, toelrated po, will observe. 22:36 ED course: pt tolerated oral intake, requested to go home, advised f/u with Dionna. bs3 Administered Medications: No medications were administered Disposition Summary: 04/21/22 22:38 Discharge Ordered Location: Home bs3 Problem: new bs3 Symptoms: are resolved bs3 Condition: Stable bs3 Diagnosis - Food in esophagus bs3 Followup: bs3 - With: Sarthak Villareal MD - When: 5 - 6 days - Reason: Further diagnostic work-up Forms: - Medication Reconciliation Form bs3 - Thank You Letter bs3 - Antibiotic Education bs3 - Prescription Opioid Use bs3 Signatures: Cammy Payne RN RN lg3 Didier Camarillo MD MD bs3
[2022-04-21 22:58] VITALS: TEMP 98.6; O2SAT 100
== END 2022-04-21 22:53 | disposition home or self-care (01) ==
LOC: ER 22:06
DX: T18.128A Food in esophagus causing other injury, initial encounter (principal); Z88.0 Allergy status to penicillin; Z88.5 Allergy status to narcotic agent
CPT/HCPCS: 99281

== ENCOUNTER 2023-08-20 19:43 | Emergency (ER) | payer OTHER ==
[2023-08-20] MEDS ORDERED: LIDOCAINE 1% 20 ML MDV ONE (20:48)
[2023-08-20] MEDS ORDERED: TDAP (DIPHTH,PERTUSS(ACELL),TET VAC) 0.5 ML VIAL IMVAC ONE (20:48)
--- NOTE | 2023-08-20 21:15 | RAD REPORT ---
EXAM DESCRIPTION: RAD - Hand Right 3 View - 08/20/2023 9:05 pm CLINICAL HISTORY: Right hand pain status post injury FINDINGS: No fracture or dislocation is seen. A radiopaque foreign body not seen
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
--- NOTE | 2023-08-20 21:21 | EDPHYS ---
Physician Documentation [facility] Name: Filippo Mcguire Age: 68 yrs Sex: Male : 1955 Arrival Date: 08/20/2023 Time: 19:43 Bed 9 Private MD: ED Physician Jeff Winter HPI: 08/19 20:30 This 68 yrs old Male presents to ER via Ambulatory with complaints of Laceration To cp Hand. 20:30 The patient has a laceration accidental while using pocket knife to open book. The cp laceration(s) is(are) located on the dorsal aspect of base of right thumb. Onset: The symptoms/episode began/occurred just prior to arrival. Associated signs and symptoms: Pertinent negatives: heavy bleeding, numbness distal to injury, suspected foreign body. Historical: - Allergies: 20:04 Morphine; bm8 20:04 PENICILLINS; bm8 - Home Meds: 20:04 duloxetine oral [Active]; buphenorphine [Active]; tadalafil oral [Active]; Melatonin bm8 Oral [Active]; Lidoderm 5 % Topical adhesive patch, medicated [Active]; - PMHx: 20:04 chronic back pain; bm8 - PSHx: 20:04 ACL; back; bm8 - Immunization history:: Adult Immunizations not up to date. - Infectious Disease History:: Denies. - Social history:: Smoking status: Patient/guardian denies using tobacco. ROS: 20:30 Skin: Positive for laceration(s), of the dorsal aspect of base of right thumb, Negative cp for heavy bleeding, 20:30 Neuro: Negative for numbness, weakness, cp 20:30 All other systems are negative, Exam: 20:33 Constitutional: The patient appears in no acute distress, alert, awake, comfortable, cp non-toxic, well developed, well nourished, 20:33 Head/Face: Normocephalic, atraumatic. cp 20:33 Chest/axilla: Inspection: normal, 20:33 Cardiovascular: Rate: normal, 20:33 Respiratory: the patient does not display signs of respiratory distress, Respirations: normal, no use of accessory muscles, no retractions, 20:33 Musculoskeletal/extremity: patient with full AROM of right thumb, no signs of tendon injury, right thumb neurovascular intact. 20:33 Skin: injury, laceration(s), the wound is approximately 2 cm(s), of the dorsal aspect of base of right thumb, that can be described as clean, no foreign body, irregular, with mild bleeding, Vital Signs: 20:02 BP 113 / 77; Pulse 89; Resp 18; Temp 99; Pulse Ox 96% on R/A; Weight 86.18 kg; Height 6 bm8 ft. 3 in. ; Pain 0/10; 22:14 BP 115 / 78; Pulse 88; Resp 17 S; Temp 98.9(O); Pulse Ox 97% on R/A; jw7 20:02 Body Mass Index 23.75 (86.18 kg, 190.5 cm) bm8 20:02 Pain Scale: Adult bm8 Laceration: 21:25 Wound Repair of 2cm ( 0.8in ) subcutaneous laceration to dorsal aspect of base of right cp thumb. Irregularly shaped.. Distal neuro/vascular/tendon intact. Anesthesia: Wound infiltrated with 4 mls of 2% lidocaine. Wound prep: Moderate cleansing by me, Wound irrigation by me. Skin closed with 2 4-0 Prolene using interrupted sutures and sterile technique. Dressed with Neosporin. Patient tolerated well. MDM: 20:12 Patient medically screened. cp 21:20 Data reviewed: vital signs, nurses notes, radiologic studies, plain films, and as a cp result, I will discharge patient. 21:20 Differential diagnosis: superficial laceration, tendon injury, vascular injury, open cp fracture, foreign body. Counseling: I had a detailed discussion with the patient and/or guardian regarding the historical points, exam findings, and any diagnostic results supporting the discharge/admit diagnosis, radiology results, to return to the emergency department if symptoms worsen or persist or if there are any questions or concerns that arise at home. Response to treatment: the patient's symptoms have markedly improved after treatment. 08/19 20:09 Order name: XRAY Hand RIGHT 3 View; Complete Time: 21:27 cp 08/19 21:27 Interpretation: Report reviewed. 08/19 20:09 Order name: Dressing - Wound; Complete Time: 22:13 cp 08/19 20:09 Order name: Gloves, Sterile; Complete Time: 22:13 cp 08/19 20:09 Order name: Setup Suture Tray; Complete Time: 22:13 cp 08/19 21:19 Order name: Wound dressing; Complete Time: 22:13 cp Administered Medications: 21:00 Drug: Boostrix Tdap IM 0.5 ml IM once; as a single dose Route: IM; Site: right deltoid; jw7 22:13 Follow up: Response: No adverse reaction jw7 22:13 Drug: Lidocaine-Epinephrine Infiltration -1%: (1:100,000) 5 ml 20 ml Infiltration once; jw7 to bedside Volume: 20 ml; Route: Infiltration; 22:13 Follow up: Response: No adverse reaction; Marked relief of symptoms jw7 Disposition Summary: 08/20/23 21:20 Discharge Ordered Notes: Location: Home cp Problem: new cp Symptoms: have improved cp Condition: Stable cp Diagnosis - Laceration without foreign body of right hand, initial encounter cp Followup: cp - With: Private Physician - When: 7 - 10 days - Reason: Staple/Suture removal Discharge Instructions: - Discharge Summary Sheet cp - Laceration Care, Adult cp - Sutured Wound Care cp Forms: - Medication Reconciliation Form cp - Antibiotic Education cp - Prescription Opioid Use cp - Patient Portal Instructions cp - Leadership Thank You Letter cp Prescriptions: - Bactrim DS 800-160 mg Oral Tablet - take 1 tablet ORAL route every 12 hours for 7 days; 14 tablet; Refills: 0, cp Product Selection Permitted Addendum: 08/22/2023 09:01 Co-signature as Attending Physician, Jeff Winter MD I reviewed the patient's care r n provided by the Advanced Practice Provider and agree with the diagnosis and treatment plan. Signatures: Dispatcher [employer] Jeff Ellsworth MD MD rn Page, Corey, PA PA cp Kim Cross RN RN jw7 Tyrese Guillen RN RN bm8 Corrections: (The following items were deleted from the chart) 08/19 20:09 20:09 Hand Right 3 View+[email or web address] ordered. BRANDON TAYLOR
[2023-08-21 05:08] VITALS: BP 115/78; TEMP 98.9; O2SAT 97
== END 2023-08-20 22:18 | disposition home or self-care (01) ==
LOC: ER 19:43
PROC: 0HQFXZZ Repair Right Hand Skin, External Approach (ICD-10-PCS; principal; 2023-08-20)
DX: S61.011A Laceration without foreign body of right thumb without damage to nail, initial encounter (principal)
CPT/HCPCS: 73130; 96372; 99284; 12001; J2001